=== PATIENT | male | born 1990 | race Caucasian/White ===

== ENCOUNTER 2020-12-29 07:44 | Outpatient (REF) | payer BC, SELFPAY ==
[2020-12-29 09:21] LABS: MANUAL DIFF FLAG NO
[2020-12-29 09:27] LABS: Basophils Absolute Auto 0.1 X10*3/uL (0.0-0.2); Basophils Percent Auto 0.9 % (0-2); Eosinophils Absolute Auto 0.5 X10*3/uL (0.0-0.4); Eosinophils Percent Auto 6.2 % (0-4); Hematocrit 43.7 % (42-52); Imm Gran Abs Auto 0.02 X10*3/uL (0.00-0.03); Imm Gran Pct Auto 0.3 % (0.0-0.4); Lymphocytes Absolute Auto 2.7 X10*3/uL (1.2-4.9); Lymphocytes Percent Auto 36.5 % (20-40); Mean Corpuscular HGB Conc 34.3 g/dl (31.0-36.0); Mean Corpuscular Hemoglobin 29.7 pg (27.0-33.0); Mean Corpuscular Volume 86.5 fL (80-98); Mean Platelet Volume 8.6 fL (9.4-12.4); Monocytes Absolute Auto 0.7 X10*3/uL (0.1-1.2); Monocytes Percent Auto 9.3 % (2-11); Neutrophils Absolute Auto 3.5 X10*3/uL (2.0-8.3); Neutrophils Percent Auto 46.8 % (45-73); Platelet Count 273 X10*3/uL (160-400); Red Blood Count 5.05 X10*6/uL (4.60-5.80); Red Cell Distribution Width 12.7 % (11.0-16.0); White Blood Count 7.5 X10*3/uL (4.8-10.8)
[2020-12-29 09:41] LABS: Estimated Average Glucose 94 mg/dL; Hemoglobin A1c % 4.9 %
[2020-12-29 09:57] LABS: Alanine Aminotransferase 40 U/L (0-40); Albumin Level 4.6 g/dL (3.5-5.0); Alkaline Phosphatase 94 U/L (39-117); Anion Gap 13 (12-20); Aspartate Amino Transferase 28 U/L (5-37); Bilirubin Total 0.4 mg/dL (0.0-1.0); Blood Urea Nitrogen 15 mg/dL (9-16); Carbon Dioxide 26 mmol/L (22-29); Chloride 104 mmol/L (96-108); Cholesterol 211 mg/dL; Estimated Glomerular Filt Rate > 60; Glucose Fasting 101 mg/dL (60-99); HDL Cholesterol 39 mg/dL; HIV AB/AG Nonreactive (Nonreactive); HIV Num 1 0.05 S/CO (0.00-0.99); LDL Cholesterol Calculated 123 mg/dl; Potassium 3.9 mmol/L (3.3-5.1); Sodium 139 mmol/L (135-145); Total Protein 7.1 g/dL (6.5-8.0); Triglycerides 245 mg/dL
[2020-12-29 10:02] LABS: TSH reflex Free T4 1.08 uIU/mL (0.32-4.0); Vitamin D 25-OH Total 22.6 ng/mL (>30)
== END 2020-12-29 07:45 | disposition home or self-care (01) ==
LOC: HO.LAB 07:44
PROVIDERS: PCP Physician Assistant; Visit Provider Physician Assistant
DX: Z00.00 Encounter for general adult medical examination without abnormal findings (principal); Z13.29 Encounter for screening for other suspected endocrine disorder; Z11.4 Encounter for screening for human immunodeficiency virus [HIV]; Z13.220 Encounter for screening for lipoid disorders; L65.9 Nonscarring hair loss, unspecified; E66.09 Other obesity due to excess calories; Z68.33 Body mass index [BMI] 33.0-33.9, adult
CPT/HCPCS: 36415; 80053; 80061; 82306; 83036; 84443; 85025; 87389

== ENCOUNTER 2021-10-06 11:52 | Outpatient (REF) | payer BC, SELFPAY ==
--- NOTE | ~2021-10-06 | XR_ITS ---
EXAMINATION: XR CHEST CLINICAL INFORMATION: Chronic cough. COMPARISON: None TECHNIQUE: 2 views of the chest were obtained. FINDINGS: No significant abnormality is noted involving the heart, lungs, mediastinum, bony thorax or soft tissues. XR/XR chest 2V IMPRESSION: Unremarkable chest examination.
== END 2021-10-06 11:53 | disposition home or self-care (01) ==
LOC: HO.XRAY 11:52
PROVIDERS: PCP Physician Assistant; Visit Provider Nurse Practitioner Family
DX: R05.3 Chronic cough (principal)
CPT/HCPCS: 71046

== ENCOUNTER 2023-09-03 11:34 | Emergency (ER) | payer BC, SELFPAY ==
--- NOTE | ~2023-09-03 | CT_ITS ---
EXAMINATION: CT HEAD WITHOUT CONTRAST CT CERVICAL SPINE WITHOUT CONTRAST CLINICAL INFORMATION: Fall. Syncope. COMPARISON: No relevant prior imaging. TECHNIQUE: Adult Secondary Education Instructor images were obtained. CT imaging of the head and cervical spine was performed without contrast. Data was reformatted into multiplanar images at the acquisition workstation. This CT examination was performed using dose optimization techniques as appropriate, including one or more of the following: Automated exposure control, iterative reconstruction, and adjustment of technique factors (mA and/or kVp) according to patient size (this includes techniques or standardized protocols for targeted exams where dose is matched to indication/reason for exam). Fleischner Society criteria for the followup of incidental pulmonary nodules was implemented if appropriate. DLP: 1128 mGy-cm. FINDINGS: Head: There is no acute intracranial hemorrhage or abnormal extra-axial collection. No intracranial mass effect or midline shift. Lateral and third ventricles are normal. No hydrocephalus. Craig-white matter differentiation is preserved and there is no evidence of acute territorial infarct. The calvarium and skull base are intact. The mastoid air cells and middle ear cavities are well aerated. There is moderate mucosal thickening within the alveolar recesses of the maxillary sinuses. Globes and orbits are grossly symmetric. Cervical spine: Spinal alignment is normal in the sagittal dimension. Vertebral heights are preserved. No acute cervical spinal fracture. No abnormal prevertebral soft tissue swelling. Visualized soft tissues of the neck are unremarkable. Lung apices are clear. CT/CT cervical spine wo IV con IMPRESSION: Head: No acute intracranial hemorrhage. Cervical Spine: No acute fracture and no posttraumatic spinal subluxation.
--- NOTE | ~2023-09-03 | CT_ITS ---
EXAMINATION: CT HEAD WITHOUT CONTRAST CT CERVICAL SPINE WITHOUT CONTRAST CLINICAL INFORMATION: Fall. Syncope. COMPARISON: No relevant prior imaging. TECHNIQUE: Bus Boy images were obtained. CT imaging of the head and cervical spine was performed without contrast. Data was reformatted into multiplanar images at the acquisition workstation. This CT examination was performed using dose optimization techniques as appropriate, including one or more of the following: Automated exposure control, iterative reconstruction, and adjustment of technique factors (mA and/or kVp) according to patient size (this includes techniques or standardized protocols for targeted exams where dose is matched to indication/reason for exam). Fleischner Society criteria for the followup of incidental pulmonary nodules was implemented if appropriate. DLP: 1128 mGy-cm. FINDINGS: Head: There is no acute intracranial hemorrhage or abnormal extra-axial collection. No intracranial mass effect or midline shift. Lateral and third ventricles are normal. No hydrocephalus. Craig-white matter differentiation is preserved and there is no evidence of acute territorial infarct. The calvarium and skull base are intact. The mastoid air cells and middle ear cavities are well aerated. There is moderate mucosal thickening within the alveolar recesses of the maxillary sinuses. Globes and orbits are grossly symmetric. Cervical spine: Spinal alignment is normal in the sagittal dimension. Vertebral heights are preserved. No acute cervical spinal fracture. No abnormal prevertebral soft tissue swelling. Visualized soft tissues of the neck are unremarkable. Lung apices are clear. CT/CT head/brain wo IV con IMPRESSION: Head: No acute intracranial hemorrhage. Cervical Spine: No acute fracture and no posttraumatic spinal subluxation.
--- NOTE | ~2023-09-03 | XR_ITS ---
EXAMINATION: XR CHEST CLINICAL INFORMATION: Chest pain. COMPARISON: 10/06/2021. TECHNIQUE: Frontal view of the chest was obtained. FINDINGS: Lung volumes are low. There is no gross pneumothorax. Heart size within normal limits. No gross pleural effusion or focal consolidation to suggest pneumonia. XR/XR chest 1V IMPRESSION: Low lung volumes. No gross consolidation to suggest pneumonia.
[2023-09-03 11:55] VITALS: BP 147/103; PULSE 80; RESP 19; TEMP 36.6; O2SAT 98; BMI 32.9
--- NOTE | 2023-09-03 11:59 | ECG_ITS ---
Test Reason : syncope Blood Pressure : / mmHG Vent. Rate : 083 BPM Atrial Rate : 083 BPM P-R Int : 164 ms QRS Dur : 124 ms QT Int : 372 ms P-R-T Axes : 066 078 038 degrees QTc Int : 437 ms Normal sinus rhythm Non-specific intra-ventricular conduction delay Borderline ECG When compared with ECG of 23-AUG-2014 10:43, No significant change was found Referred By: Alex Lombardi Electronically Signed By:JOSE BECKFORD MD
--- NOTE | 2023-09-03 12:01 | ED_ITS ---
HPI - General Adult General Chief complaint: General Medical Stated complaint: Blacked Out Am Sent By Time Seen by Provider: 09/03/23 17:58 Source: patient Mode of arrival: ambulatory Limitations: no limitations History of Present Illness HPI narrative: Patient comes to the emergency room complaining of a near syncopal episode. Patient states that today he was trying to inside of his car, patient [place] alarm button, the car beeped, which constipation to nearly pass out. Patient states that he did not pass out or fall, states that he did not feel right for a 2nd, no chest pain or shortness of breath. Patient states that he was freaked out enough to come to the emergency room to get checked out. Patient states he has history of anxiety and depression and migraines. At this time, patient denies headache. Related Data Home Medications Medication Instructions Recorded Confirmed albuterol sulfate 90 mcg/actuation 2 puff inhalation Q6H PRN 05/17/20 11/09/21 aerosol inhaler (ProAir HFA) trazodone 50 mg tablet mg PO BEDTIME PRN 05/17/20 11/09/21 bupropion HCl 150 mg 24 hr tablet, 150 mg PO QAM 12/28/20 11/09/21 extended release clonazepam 1 mg tablet 1 mg PO DAILY PRN 12/28/20 11/09/21 lisdexamfetamine 20 mg capsule 20 mg PO QAM 10/06/21 11/09/21 (Vyvanse) Previous Rx's Medication Instructions Recorded cholecalciferol (vitamin D3) 50 50 mcg PO DAILY 90 days #90 caps 06/26/21 mcg (2,000 unit) capsule cetirizine 10 mg tablet 10 mg PO DAILY #30 tabs 10/30/21 fluticasone propionate 110 1 puff inhalation BID 30 days #12 11/09/21 mcg/actuation HFA aerosol inhaler grams (Flovent HFA) baclofen 10 mg tablet 10 mg PO BID PRN pain (scale score 10/27/22 7-10) 15 days #30 tabs Allergies Allergy/AdvReac Type Severity Reaction Status Date / Time hazelnut Allergy Unknown throat Verified 09/03/23 11:55 itchy Review of Systems 2 Review of Systems: Constitutional : No Weight loss, No Fever, No Chills, No Night Sweats, No Fatigue, No Malaise ENT/Mouth : No Hearing loss, No Ear Pain, No Nasal Congestion, No Sinus Pain, No Hoarseness, No sore throat, No Rhinorrhea, No Swallowing Difficulty Eyes: No Eye Pain, No Swelling, No Redness, No Foreign Body, No Discharge, No Vision Changes Cardiovascular : No Chest Pain, No SOB, No Dyspnea on Exertion, No Orthopnea, No Edema, No Palpitations Respiratory : No Cough, No Sputum, No Wheezing, No Smoke Exposure, No Dyspnea Gastrointestinal : No Nausea, No Vomiting, No Diarrhea, No Constipation, No abdominal Pain, No Hematochezia, No Melena Genitourinary : no irregular bleeding, No Dysuria, No Urinary Frequency, No Hematuria, No Urinary Incontinence, No Urgency, No Flank Pain, No Urinary Flow Changes, No Hesitancy Musculoskeletal : No joint pain, No Myalgias, No Joint Swelling Skin : No Skin Lesions, No rash Neuro : No Weakness, No Numbness, No Paresthesias, No Loss of Consciousness, No Dizziness, No Headache near syncope for 2nd Psych : Anxiety No Depression, No SI/HI/AH/VH, No Social Issues, Heme/Lymph: No Bruising, No Bleeding,No Lymphadenopathy Endocrine : No Polyuria, No Polydipsia, No Temperature Intolerance [facility] Past Medical History Medical History Asthma MDD (major depressive disorder) JAN (generalized anxiety disorder) ADD (attention deficit disorder) Surgical History No pertinent past surgical history Family History Family History Father Medical history unknown Mother Depression with anxiety Chronic mental illness Mental health disorder Family/Other Diabetes Social History Social History (Updated 11/09/21 @ 15:11 by Rishi Galan PA-C) Housing: House Alcohol intake: current Alcohol intake frequency: 3 or more drinks per day Alcohol type: beer Patient Tobacco Use Status: Never used Tobacco Smoked in Last 30 Days: No e-Cigarette/Vaping Use: Never Used Second Hand Smoke Exposure: No Use of substances other than those prescribed or required for medical reasons: No Advance Directives: No service: No Current occupational status: employed Cognitive needs: No Hearing needs: No Vision needs: Yes (glasses) Physical Exam ED Vital Signs: Vital Signs - 24 hr 09/03/23 11:55 09/03/23 18:19 09/03/23 18:21 Temperature 98 F Pulse Rate 80 74 74 Respiratory Rate 19 16 Blood Pressure 147/103 H 120/81 120/81 Pulse Oximetry 98 97 Oxygen Delivery Method Room Air Room Air 09/03/23 18:21 09/03/23 18:23 Temperature Pulse Rate 80 79 Respiratory Rate Blood Pressure 131/101 H 147/93 H Pulse Oximetry Oxygen Delivery Method BMI result Body Mass Index 32.9 Course Course Course Narrative: RME: 31-year-old male presents to ED for syncopal episodes in his garage after hearing a loud noise. Patient states after having syncopal episode he is now having headache and chest pain. Patient denies any dizziness or chest pain before syncopal episode. Patient has history of anxiety. Patient states migraine in the past. EKG labs imaging ordered. Orthostatics ordered. Medical Decision Making Medical Decision Making [facility] Narrative: -patient's physical exam is normal. Orthostatic vitals negative -patient did not have a syncopal episode -Wells criteria score for pulmonary embolism is 0 -patient's hematology and chemistry fairly normal, troponin negative, BNP negative -my interpretation of EKG: Normal sinus rhythm, heart rate 83, no ST segment depression or elevation, no T-wave inversion, QTC 437 -my interpretation of head CT: No intracranial bleed -chest x-ray within normal limits Differential Diagnosis Differential Diagnoses: The differential diagnosis associated with the presentation includes (Syncope, near syncope, vasovagal near syncope, orthostatic hypotension, anxiety) Admission/Observation Consideration of admission/observation: Escalation of care including admission/observation considered (Given patient's presentation, admission was considered) Lab Data [facility] Lab Attestation statement: I reviewed the patient's lab results. 09/03/23 12:42 09/03/23 12:42 Labs: Lab Results 09/03/23 Range/Units 12:42 WBC 7.9 (4.8-10.8) X10*3/uL RBC 5.56 (4.60-5.80) X10*6/uL Hgb 16.5 (14.0-18.0) g/dl Hct 46.7 (42.0-52.0) % MCV 84.0 (80.0-98.0) fL MCH 29.7 (27.0-33.0) pg MCHC 35.3 (31.0-36.0) g/dl RDW 12.6 (11.0-16.0) % Plt Count 242 (160-400) X10*3/uL MPV 8.3 L (9.4-12.4) fL Immature Gran % (Auto) 0.5 H (0.0-0.4) % Neut % (Auto) 54.8 (45-73) % Lymph % (Auto) 35.7 (20-40) % Sherman % (Auto) 6.1 (2-11) % Eos % (Auto) 2.1 (0-4) % Baso % (Auto) 0.8 (0-2) % Lymph # (Auto) 2.8 (1.2-4.9) X10*3/uL Sherman # (Auto) 0.5 (0.1-1.2) X10*3/uL Eos # (Auto) 0.2 (0.0-0.4) X10*3/uL Baso # (Auto) 0.1 (0.0-0.2) X10*3/uL Abs Immat Gran (auto) 0.04 H (0.00-0.03) X10*3/uL Absolute Neuts (auto) 4.3 (2.0-8.3) x10*3/uL Absolute Nucleated RBC 0.000 (0.0-0.012) X10*3/uL Nucleated RBC % (auto) 0.0 (0.0-0.2) /100WBC PT 11.6 (11.1-13.3) SEC INR 1.0 (0.9-1.1) APTT 32.6 (26.0-36.8) SEC Sodium 142 (135-145) mmol/L Potassium 4.1 (3.3-5.1) mmol/L Chloride 105 (96-108) mmol/L Carbon Dioxide 28 (22-29) mmol/L Anion Gap 13 (12-20) BUN 13 (9-16) mg/dL Creatinine 1.02 (0.5-1.4) mg/dL Estim Creat Clear Calc 109.7 Estimated GFR > 60 Random Glucose 95 (60-115) mg/dL Calcium 9.7 D (8.4-10.2) mg/dL Total Bilirubin 0.6 (0.0-1.0) mg/dL AST 29 (5-37) U/L ALT 48 H (0-40) U/L Alkaline Phosphatase 81 (39-117) U/L Troponin I High Sens < 2.7 (<3.5-35.0) ng/L B-Natriuretic Peptide < 10 (<100) pg/mL Total Protein 7.7 (6.5-8.0) g/dL Albumin 4.8 (3.5-5.0) g/dL Critical Care Time Critical Care Time Critical Care Time: Yes Total Critical Care Time: 30 Attestation: I have personally provided critical care time. Time includes review of lab data, radiology results, discussion with consultants, and monitoring for potential decompensation. Intervention performed as documented. Discharge Plan Discharge Clinical Impression: Vasovagal episode Patient Disposition: Home, Self-Care Instructions: Near Syncope (ED) Additional Instructions: Please follow-up with your primary care physician tomorrow. If you have any worsening or new symptoms, please return to the emergency room or call 911 Prescriptions: No Action cholecalciferol (vitamin D3) 50 mcg (2,000 unit) capsule 50 mcg PO DAILY 90 Days Qty: 90 2RF cetirizine 10 mg tablet 10 mg PO DAILY Qty: 30 4RF baclofen 10 mg tablet 10 mg PO BID PRN (Reason: pain (scale score 7-10)) 15 Days Qty: 30 6RF trazodone 50 mg tablet PO BEDTIME PRN albuterol sulfate [ProAir HFA] 90 mcg/actuation HFA aerosol inhaler 2 puff inhalation Q6H PRN clonazepam 1 mg tablet 1 mg PO DAILY PRN bupropion HCl 150 mg tablet extended release 24 hr 150 mg PO QAM Vyvanse 20 mg capsule 20 mg PO QAM Flovent HFA 110 mcg/actuation HFA aerosol inhaler 1 puff inhalation BID 30 Days Qty: 12 1RF
[2023-09-03 12:48] LABS: MANUAL DIFF FLAG NO
[2023-09-03 12:53] LABS: Basophils Absolute Auto 0.1 X10*3/uL (0.0-0.2); Basophils Percent Auto 0.8 % (0-2); Eosinophils Absolute Auto 0.2 X10*3/uL (0.0-0.4); Eosinophils Percent Auto 2.1 % (0-4); Hematocrit 46.7 % (42.0-52.0); Hemoglobin 16.5 g/dl (14.0-18.0); Imm Gran Abs Auto 0.04 X10*3/uL (0.00-0.03); Imm Gran Pct Auto 0.5 % (0.0-0.4); Lymphocytes Absolute Auto 2.8 X10*3/uL (1.2-4.9); Lymphocytes Percent Auto 35.7 % (20-40); Mean Corpuscular HGB Conc 35.3 g/dl (31.0-36.0); Mean Corpuscular Hemoglobin 29.7 pg (27.0-33.0); Mean Platelet Volume 8.3 fL (9.4-12.4); Monocytes Absolute Auto 0.5 X10*3/uL (0.1-1.2); Monocytes Percent Auto 6.1 % (2-11); Neutrophils Absolute Auto 4.3 x10*3/uL (2.0-8.3); Neutrophils Percent Auto 54.8 % (45-73); Platelet Count 242 X10*3/uL (160-400); Red Blood Count 5.56 X10*6/uL (4.60-5.80); Red Cell Distribution Width 12.6 % (11.0-16.0); White Blood Count 7.9 X10*3/uL (4.8-10.8)
[2023-09-03 12:56] LABS: Prothrombin Time 11.6 SEC (11.1-13.3)
[2023-09-03 12:59] LABS: Partial Thromboplastin Time 32.6 SEC (26.0-36.8)
[2023-09-03 13:04] LABS: Alanine Aminotransferase 48 U/L (0-40); Albumin Level 4.8 g/dL (3.5-5.0); Alkaline Phosphatase 81 U/L (39-117); Anion Gap 13 (12-20); Aspartate Amino Transferase 29 U/L (5-37); Bilirubin Total 0.6 mg/dL (0.0-1.0); Blood Urea Nitrogen 13 mg/dL (9-16); Calcium 9.7 mg/dL (8.4-10.2); Carbon Dioxide 28 mmol/L (22-29); Chloride 105 mmol/L (96-108); Creatinine Clr Calc Pharmacy 109.7; Estimated Glomerular Filt Rate > 60; Glucose Random 95 mg/dL (60-115); Potassium 4.1 mmol/L (3.3-5.1); Sodium 142 mmol/L (135-145); Total Protein 7.7 g/dL (6.5-8.0)
[2023-09-03 13:09] LABS: B Type Natriuretic Peptide < 10 pg/mL (<100)
[2023-09-03 13:11] LABS: Troponin-I High Sensitivity < 2.7 ng/L (<3.5-35.0)
[2023-09-03 18:19] VITALS: BP 120/81; PULSE 74
[2023-09-03 18:21] VITALS: BP 120/81; BP 131/101; PULSE 74; PULSE 80; RESP 16; O2SAT 97
[2023-09-03 18:23] VITALS: BP 147/93; PULSE 79
[2023-09-03 19:05] VITALS: BP 135/89; PULSE 78; RESP 18; O2SAT 95
[2023-09-03 19:06] VITALS: TEMP 36.6
== END 2023-09-03 19:11 | disposition home or self-care (01) ==
PROVIDERS: Physician Assistant; Emergency Provider Emergency Medicine; PCP Physician Assistant
DX: R55 Syncope and collapse (principal); R51.9 Headache, unspecified; M54.2 Cervicalgia; R94.31 Abnormal electrocardiogram [ECG] [EKG]; R06.02 Shortness of breath; Z79.899 Other long term (current) drug therapy
CPT/HCPCS: 36415; 70450; 71045; 72125; 80053; 83880; 84484; 85025; 85610; 85730; 93005; 99284

== ENCOUNTER → 2023-09-03 11:59 | Outpatient (BNV) | payer BC, SELFPAY | PROVIDERS: Emergency Provider Emergency Medicine; PCP Physician Assistant; Visit Provider Internal Medicine Cardiovascular Disease | DX: R55 Syncope and collapse (principal) | CPT/HCPCS: 93010 ==

== ENCOUNTER 2023-09-10 08:43 | Outpatient (AMB) | payer BC, SELFPAY ==
[2023-09-10 09:07] VITALS: BP 126/88; PULSE 80; O2SAT 97; BMI 33.6
--- NOTE | 2023-09-10 09:07 | A.OFFPC_ITS ---
Vital Signs 09/10/23 09:07 Height 5 ft 6 in Weight 208 lb BMI 33.6 BP 126/88 Blood Pressure Location Lt brachial Position Sitting Pulse 80 Pulse Source Pulse Oximeter Pulse Oximetry (%) 97 Oxygen Delivery Method Room Air Intake Visit Reasons: [facility] On 09/03/23 due to Passing Out Cattle Feeder Required: No Rolls Baker: Not Required per policy Accompanied by: Self / Same As Patient Allergies hazelnut Allergy (Unknown, Verified 09/10/23 09:26) throat itchy Medication List - Last Reconciled 09/10/23 by Rishi Galan PA-C albuterol sulfate 90 mcg/actuation (ProAir HFA) 2 puffs inhalation Q6H PRN aripiprazole 2 mg PO DAILY bupropion HCl 150 mg PO QAM cholecalciferol (vitamin D3) 50 mcg PO DAILY 90 days clonazepam 1 mg PO DAILY PRN fluticasone propionate 110 mcg/actuation 1 puff inhalation BID 30 days trazodone mg PO BEDTIME PRN Tobacco use date assessed: 09/10/23 Dental Screening Dental Screen Date: 09/10/23 Did you have a dental visit in the last 12 months?: Yes Did you have a dental problem in the last 6 months where you did not have access to dental care?: No Was dental information given to patient?: Patient has dentist HPI [facility] On 09/03/23 due to Passing Out HPI Details Patient is a 32-year-old male here today for an ER follow-up visit. He reports he was seen at the [place] ER for acute episode syncope with loss of consciousness. He reports he was in his garage and turned on the alarm for his car and when the alarm went off he reports he blanked out . In the ER he underwent extensive testing including labs, CT of head and neck, troponins, chest x-ray and EKG. His EKG did show a intraventricular conduction delay otherwise all labs and imaging were negative. He denies any recreational drug use. He does report cut down his alcohol intake. He otherwise feels fine at this moment and has no further episodes of syncope [facility] Medical History Asthma MDD (major depressive disorder) JAN (generalized anxiety disorder) ADD (attention deficit disorder) Surgical History No pertinent past surgical history Family History Father Medical history unknown Mother Depression with anxiety Chronic mental illness Mental health disorder Family/Other Diabetes Social History Housing: House Alcohol intake: current Alcohol intake frequency: 3 or more drinks per day Alcohol type: beer Patient Tobacco Use Status: Never used Tobacco e-Cigarette/Vaping Use: Never Used Second Hand Smoke Exposure: No service: No Current occupational status: employed Cognitive needs: No Hearing needs: No Vision needs: Yes (glasses) Questionnaire PHQ-9 Over the last 2 weeks, how often have you been bothered by any of the following problems? 1. Little interest or pleasure in doing things: not at all 2. Feeling down, depressed, or hopeless: not at all 3. Trouble falling or staying asleep, or sleeping too much: not at all 4. Feeling tired or having little energy: not at all 5. Poor appetite or overeating: not at all 6. Feeling bad about yourself - or that you are a failure or have let yourself or your family down: not at all 7. Trouble concentrating on things, such as reading the newspaper or watching television: not at all 8. Moving or speaking so slowly that other people could have noticed. Or the opposite - being so fidgety or restless that you have been moving around a lot more than usual: not at all 9. Thoughts that you would be better off or of hurting yourself in some way: not at all Total score: 0 95059 - PHQ-9 Billing: Yes Source: Developed by Drs. Nick Ramirez, Ema Still, Justice Vidal and colleagues, with an educational aubrey from [employer]. Thrive Questionnaire Date Thrive assessed: 09/10/23 I am a: Patient What is your living situation today?: I have a steady place to live Within the past 12 months, did the food you bought not last and you didn't have the money to get more?: Never true Within the past 12 months, did you worry whether your food would run out before you got money to buy more?: Never true Do you have trouble paying for medicines?: No Do you have trouble getting transportation to medical appointments?: No Do you have trouble paying your heating and electricity bill?: No Do you have trouble taking care of your child, family member or friend?: No Do you have trouble with day-to-day activities such as bathing, preparing meals, shopping, managing finances, etc.?: No Are you currently unemployed and looking for a job?: No Are you interested in more education?: No Please select the resources that you would like help with: None THRIVE Score: 0 AUDIT C Alcohol Use Questionnaire (AUDIT-C) 1. How often do you have a drink containing alcohol?: Monthly or less 2. How many drinks containing alcohol do you have on a typical day when you are drinking?: 1 or 2 3. How often do you have six or more drinks on one occasion?: Never Total Score: 1 JAN-7 AMB Questionnaire JAN-7 Date JAN - 7 assessed: 09/10/23 Feeling nervous, anxious, or on edge: 0 = Not at all Not being able to stop or control worryin = Not at all Worrying too much about different things: 0 = Not at all Trouble relaxin = Not at all Being so restless that it is hard to sit still: 0 = Not at all Becoming easily annoyed or irritable: 0 = Not at all Feeling afraid as if something awful might happen: 0 = Not at all Total JAN-7 score (0-4 normal; 5-9 mild; 10-14 moderate; 15-21 severe): 0 Source: Developed by Drs. Nick Ramirez, Ema Still, Justice Vidal and colleagues, with an educational aubrey from [employer]. JAN-7 Assessment Billing JAN-7 Assessment Tool: JAN-7 Assessment 16260 Review of Systems Const Denies headache(s) Eyes Denies loss of vision ENT Denies vertigo, Denies dizziness, Denies headache(s) and Denies sore throat Card Denies chest pain, Denies leg edema and Denies lightheadedness Resp Denies cough, Denies hemoptysis and Denies wheezing GI Denies abdominal pain, Denies melena, Denies constipation, Denies diarrhea and Denies vomiting Denies dysuria, Denies urinary frequency and Denies urinary urgency Musc Denies arthralgias, Denies joint swelling, Denies numbness and Denies tingling Neuro Denies Abnormal speech present, Denies behavioral changes, Denies vertigo, Denies dizziness, Denies headache(s), Denies loss of vision, Denies memory loss, Denies numbness and Denies tingling Psych Denies anxiety, Denies behavioral changes, Denies depression, Denies memory loss and Denies panic attacks Manjit/Lymph Denies easy bleeding and Denies easy bruising Aller/Immun Denies wheezing Physical exam (Primary Care) Vital Signs: Last Vital Signs Pulse 80 09/10/23 09:07 BP 126/88 09/10/23 09:07 Pulse Ox 97 09/10/23 09:07 Oxygen Delivery Method Room Air 09/10/23 09:07 BMI result Body Mass Index 33.6 Tobacco/Smoking Status: Tobacco use Status Tobacco use date assessed 09/10/23 09/10/23 09:08 Patient Tobacco Use Status Never used Tobacco 09/10/23 09:08 e-Cigarette/Vaping Use Never Used 09/10/23 09:08 PHQ-9: PHQ-9 Score PHQ-9: Total score 0 09/10/23 09:29 Thrive Assessment: Date of Thrive Assessment Date Thrive assessed 09/10/23 09/10/23 09:08 Const General: healthy appearing, no acute distress, alert and awake Nutritional Appearance: well nourished Orientation/consciousness: oriented to person, oriented to place and oriented to time HENMT Ears: TM's normal bilaterally General nose exam: Normal nasal mucous membranes and turbinates present Eyes Conjunctivae: conjunctivae normal Sclerae: sclerae normal Pupils: Equal, round and reactive pupils present Neck Neck: Yes no lymphadenopathy and Yes no JVD Thyroid: Thyroid normal Carotids: no bruits Resp Effort & Inspection: normal respiratory effort and not tachypneic Auscultation: no crackles, no rales, no rhonchi and no wheezes Cardio Rate: regular rate Rhythm: regular rhythm Heart sounds: no murmurs and normal S1 and S2 GI Palpation (GI): Soft to palpation, nontender, no hepatomegaly and no splenomegaly Auscultation: normal bowel sounds Skin General skin exam: no rashes or lesions noted and dry skin Neuro General: oriented to person, oriented to place and oriented to time Cranial nerves: Yes Equal, round and reactive pupils present Speech: No Abnormal speech present Gait exam (Neuro): Normal gait present Motor exam (neuro): no tremor noted Extrem Right upper extremity: full ROM Left upper extremity: full ROM Right lower extremity: full ROM; no edema Left lower extremity: full ROM; no edema Psych Mental Status: mental status grossly normal Speech and movement: Normal speech and movement present Affect: normal affect Attitude: cooperative Thought process: Normal thought process present Assessment and Plan Assessment & Plan (1) Syncopal episodes: Code(s): R55 - Syncope and collapse Qualifiers: Syncope type: psychogenic syncope Qualified Code(s): F48.8 - Other specified nonpsychotic mental disorders Plan: Unclear recent for patient's syncopal episode. Workup has been fairly benign thus far. Will send for echocardiogram to evaluate for structural heart disease. Does have EKG evidence of intraventricular conduction delay. Will consider Cardiology evaluation (2) Intraventricular conduction delay: Code(s): I45.9 - Conduction disorder, unspecified Orders: Orders Comprehensive Kill Buck. 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
== END 2023-09-10 09:42 | disposition home or self-care (01) ==
PROVIDERS: PCP Physician Assistant; Visit Provider Physician Assistant
DX: I45.9 Conduction disorder, unspecified (principal); F48.8 Other specified nonpsychotic mental disorders
CPT/HCPCS: 99214

== ENCOUNTER → 2023-09-30 14:40 | Outpatient (REF) | payer BC, SELFPAY ==
--- NOTE | 2023-09-30 14:44 | CA_ITS ---
Transthoracic Echocardiogram Patient (Last, First, Middle): Mesfin Brown M Gender: Male Date of : 1990 Age: 32 Procedure Date: 09/30/2023 Procedure Type: Transthoracic Echocardiogram Location: OP Height: 167.64 cm Weight: 92.53 kg BSA: 2.02 m2 Heart Rate: bpm BP: 122 / 60 mmHg Manager Deli: Referring MD: Rishi Galan PA-C Symptoms: SYNCOPE, ABNORMAL EKG , IVCD Study Quality: Adequate ECG Rhythm: Sinus Conclusions: - The left ventricular systolic function is normal. The calculated ejection fraction is 55% by biplane method. - No obvious valvular pathology seen on this study. Findings Left Ventricle Normal left ventricular cavity size. There is normal left ventricular wall thickness. The left ventricular systolic function is normal. The calculated ejection fraction is 55% by biplane method. There is no evidence of regional wall motion abnormalities. Diastolic function is normal for age. Right Ventricle Normal right ventricular cavity size and systolic function. Atria Both atria are normal in size. Aortic Valve The aortic valve was not well visualized. There is no aortic valve stenosis. There is no aortic valve regurgitation. Mitral Valve The mitral valve appears normal. There is no mitral valve regurgitation. There is no mitral valve stenosis. Pulmonic Valve The pulmonic valve is likely normal. Tricuspid Valve There is trace tricuspid valve regurgitation. There is no evidence of pulmonary hypertension. Great Vessels The asc aorta is normal in size. Venous The inferior vena cava is normal in size and collapses greater than 50% with inspiration. Pericardium/Pleural There is no evidence of pericardial effusion. Prior Study Comparison No prior study available for comparison. Recommendations, Care & Conclusions No obvious valvular pathology seen on this study. Measurements 2D Linear Measurements IVSd: 1.03 0.6-0.9/0.6-1.0 cm LVIDd: 4.25 3.9-5.3/4.2-5.9 cm LVIDd Index: 2.10 2.4-3.2/2.2-3.1 cm/m2 LVIDs: 2.40 2.0-3.6 cm LVPWd: 1.00 0.7-1.1 cm Ao Root: 3.30 2.1-3.5 cm LA Diam: 3.70 2.7-3.8/3.0-4.0 cm LAIDs Index: 1.83 1.5-2.3 cm/m2 LV Mass: 177.74 67-162/88-224 g LV Mass Index: 87.99 43-95/49-115 g/m2 LVOT Diam: 2.40 3.0+(-)1.3 cm 2D Systolic Function EF 4C: 54.90 >55% EF 2C: 54.20 >55% EF BiP: 54.80 >55% Mitral Valve MV Pk E: 0.65 MV PK A: 0.56 MV Decel Time: 136.00 E/A: 1.20 E'Lateral: 9.25 E'Medial: 6.74 E/E' Med: 9.60 E/E' Lat: 7.00 PHT: 40.00 MVA PHT: 5.50 Decel Harrison: 4.74 Aortic Valve AoV Pk Hans: 1.12 AoV Mn Hans: 0.80 AoV VTI: 0.23 AoV Pk Grad: 5.00 Aov Mn Grad: 3.00 HILARY Cont.VTI: 3.06 LVOT LVOT Pk Hans: 0.74 LVOT Mn Hans: 0.54 LVOT VTI: 0.16 LVOT Pk Grad: 2.00 LVOT Mn Grad: 1.00 LVOT Diam: 2.40 LVOT Area: 4.52 Diastolic Function MV Pk E: 0.65 MV Pk A: 0.56 E/A: 1.20 E'Medial: 6.74 E/E' Med: 9.60 E' Laterial: 9.25 E/E' Lat: 7.00 Right Ventricle TAPSE (mm): 23.00 TVS' Hans: 12.40 Tricuspid Valve TR Pk Hans: 1.65 TR Pk Grad: 11.00 Great Vessels Aorta Ao Root-2D: 3.30 2.0-3.7 cm Ao Asc: 3.00 2.1-3.4 cm Pulmonary Valve PV Pk Hans: 0.88 Peak PV Grad: 3.00 Updated in Other Vendor System with Status of Final Faisal Scott MD electronically signed on 10/01/2023 12:30:51 PM with status of Final
== END ==
LOC: HO.CARD 14:40
PROVIDERS: Visit Provider Physician Assistant
DX: F48.8 Other specified nonpsychotic mental disorders (principal)
CPT/HCPCS: 93306

== ENCOUNTER → 2023-09-30 14:44 | Outpatient (BNV) | payer BC, SELFPAY | PROVIDERS: Visit Provider Internal Medicine | DX: R55 Syncope and collapse (principal); R94.31 Abnormal electrocardiogram [ECG] [EKG] | CPT/HCPCS: 93306 ==

== ENCOUNTER 2024-01-09 10:05 | Outpatient (AMB) | payer BC, SELFPAY ==
--- NOTE | 2024-01-09 10:12 | MHC.PC.OV ---
Vital Signs 01/09/24 10:13 Height 5 ft 6 in Weight 211 lb BMI 34.1 BP 132/100 H Blood Pressure Location Lt brachial Position Sitting Pulse 78 Pulse Source Pulse Oximeter Pulse Oximetry (%) 96 Oxygen Delivery Method Room Air Intake Visit Reasons: Physical+checkup Intake Note: Patient here for a physical exam Alarm Operator Required: No Accompanied by: Self / Same As Patient Allergies hazelnut Allergy (Unknown, Verified 01/09/24 10:19) throat itchy Medication List - Last Reconciled 01/09/24 by Rishi Galan PA-C albuterol sulfate 90 mcg/actuation 1 inh inhalation QID PRN 30 days aripiprazole 2 mg PO DAILY bupropion HCl XL 150 mg PO QAM cholecalciferol (vitamin D3) 50 mcg PO DAILY 90 days clonazepam 1 mg PO DAILY PRN fluticasone propionate 110 mcg/actuation inhalation prazosin 2 mg PO BID trazodone mg PO BEDTIME PRN Tobacco use date assessed: 09/10/23 Dental Screening Dental Screen Date: 01/09/24 Did you have a dental visit in the last 12 months?: Yes Did you have a dental problem in the last 6 months where you did not have access to dental care?: No Was dental information given to patient?: Patient has dentist HPI Physical+checkup HPI Details Patient is a 33 -year-old male here today for routine annual physical. Patient has a past medical history significant for major depressive disorder, anxiety, ADD, obesity, Chronic lumbar spine pain. Concern--> reports bilateral hand and forearm pain and hand numbness at times. 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 Asthma: REport his asthma has been stable. Has rarely had to use his albuterol inhaler. . MDD: feels pretty stable on currently meds. Does admit to times more depression and some isolation. He does report reducing some of his alcohol intake lately. Continues to follow a therapist and a psychiatrist. .. Lower back pain - report having more back pain has been worsening, report falling down some stairs in the fall 2020 which exacerbated his lower back pain. Has gotten x-ray of his lower back in 2019 which was fairly unremarkable. He is willing to repeat x-ray and do physical therapy for his lower back pain condition. We will consider MRI imaging to rule out a disc issue if he does not aggressive physical therapy. Vaccine: UTD with Tdap, up-to-date with COVID vaccine [facility] Medical History Asthma MDD (major depressive disorder) JAN (generalized anxiety disorder) ADD (attention deficit disorder) Surgical History No pertinent past surgical history Family History Father Medical history unknown Mother Depression with anxiety Chronic mental illness Mental health disorder Family/Other Diabetes Social History (Updated 01/09/24 @ 10:22 by Rishi Galan PA-C) Housing: House Alcohol intake: current Alcohol intake frequency: 0-2 drinks per day Alcohol type: beer Patient Tobacco Use Status: Never used Tobacco e-Cigarette/Vaping Use: Never Used Second Hand Smoke Exposure: No service: No Current occupational status: employed 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 Nick Ramirez, Ema Still, Justice Vidal and colleagues, with an educational aubrey from [employer]. Review of Systems Const Denies body aches, Denies chills, Denies excessive sweating, Denies fatigue, Denies fever(s) and Denies headache(s) Eyes Denies blurry vision ENT Denies dysphagia, Denies vertigo, Denies dizziness, Denies headache(s), Denies hearing loss and Denies tinnitus Card Denies chest pain, Denies chest pain with activity, Denies syncope, Denies irregular heart rhythm and Denies dyspnea Resp Denies chest congestion, Denies cough, Denies hemoptysis, Denies dyspnea and Denies wheezing GI Denies abdominal pain, Denies melena, Denies hematochezia, Denies coffee ground emesis, Denies dysphagia, Denies diarrhea, Denies nausea and Denies vomiting Denies difficulty urinating, Denies dysuria, Denies urinary frequency, Denies urinary hesitancy and Denies urinary urgency Musc Denies arthralgias, Denies limited range of motion, Denies muscle cramps and Denies muscle weakness Skin/Breast Denies rash and Denies skin ulcer Neuro Denies Abnormal speech present, Denies confusion, Denies vertigo, Denies dizziness, Denies syncope, Denies headache(s), Denies memory loss and Denies seizure-like activity Psych Denies anxiety, Denies confusion, Denies depression, Denies memory loss, Denies panic attacks and Denies paranoia Endo Denies excessive sweating, Denies fatigue, Denies flushing, Denies polydipsia and Denies polyuria Aller/Immun Denies wheezing Physical exam (Primary Care) Vital Signs: Last Vital Signs Pulse 78 01/09/24 10:13 BP 132/100 H 01/09/24 10:13 Pulse Ox 96 01/09/24 10:13 Oxygen Delivery Method Room Air 01/09/24 10:13 BMI result Body Mass Index 34.1 Tobacco/Smoking Status: Tobacco use Status Tobacco use date assessed 09/10/23 01/09/24 10:17 Patient Tobacco Use Status Never used Tobacco 01/09/24 10:22 e-Cigarette/Vaping Use Never Used 01/09/24 10:22 Thrive Assessment: Date of Thrive Assessment Date Thrive assessed 09/10/23 01/09/24 10:17 Const General: cooperative, comfortable, no acute distress, alert and awake; No confusion Orientation/consciousness: oriented to person, oriented to place, patient oriented x3 and No confusion HENMT Head: Yes normocephalic Ears: external ears normal and TM's normal bilaterally Face and sinus: No sinus tenderness Mouth: Normal oral and palatal mucosa present and tongue normal Teeth and gingiva: dentition normal and gingiva normal Throat: Yes posterior oropharynx normal, Yes tonsils normal and Yes uvula midline Eyes Conjunctivae: conjunctivae normal Sclerae: sclerae normal Pupils: Equal, round and reactive pupils present EOM: EOMs intact bilaterally Direct Ophthalmoscopy: No no photophobia Neck Neck: Yes no lymphadenopathy, No tender and Yes no JVD Thyroid: Thyroid normal Carotids: no bruits Chest Chest palpation & inspection: no tenderness Resp Effort & Inspection: normal respiratory effort, no audible wheezes, not labored and no stridor Auscultation: no crackles, no rales, no rhonchi and no wheezes Cardio Jugular venous distension: no JVD Rate: regular rate, not bradycardic and not tachycardic Rhythm: regular rhythm Bruits: no carotid bruits Peripheral pulses: Peripheral pulses 2+ throughout GI Inspection: Yes normal to inspection, No abdominal wall ecchymosis and No visible herniation Palpation (GI): Soft to palpation, nontender, no guarding, not rigid and No hepatosplenomegaly present Auscultation: normoactive bowel sounds General: Yes no CVA tenderness Back/Spine/Pelvis Back: no CVA tenderness and No back tenderness Cervical Spine: cervical ROM normal Thoracic/Lumbar Spine: thoracic and lumbar spine normal to inspection, straight leg raise negative bilaterally, No thoraco-lumbar ROM limited and No lumbar spinal tenderness Skin Lesions: no lesions Rashes: no rashes Wounds: no wounds Neuro General: oriented to person, oriented to place, patient oriented x3, CN's II-XI intact bilaterally and No confusion Cranial nerves: Yes Equal, round and reactive pupils present and Yes Normal accommodation reflex present Cognition (Neuro): normal cognition Speech: No Abnormal speech present Gait exam (Neuro): Normal gait present Motor exam (neuro): 5/5 motor strength present throughout Extrem Right upper extremity: full ROM; no cyanosis Left upper extremity: full ROM; no cyanosis Right lower extremity: no edema Left lower extremity: no edema Psych Appearance: grossly normal Mental Status: mental status grossly normal Affect: normal affect Attitude: cooperative Thought process: Normal thought process present Assessment and Plan Assessment & Plan (1) Annual physical exam: Code(s): Z00.00 - Encounter for general adult medical examination without abnormal findings (2) Asthma: Code(s): J45.909 - Unspecified asthma, uncomplicated Qualifiers: Asthma complication type: uncomplicated Asthma persistence: persistent Asthma severity: mild Qualified Code(s): J45.30 - Mild persistent asthma, uncomplicated Plan: He reports his asthma has been fairly well controlled, does use a maintenance inhaler twice a day and rarely has to use his albuterol inhaler. He denies any nighttime awakenings or recent asthma exacerbations. (3) MDD (major depressive disorder): Code(s): F32.9 - Major depressive disorder, single episode, unspecified Qualifiers: Active/Remission status: currently active Major depression episode severity: mild Major depression recurrence: recurrent Qualified Code(s): F33.0 - Major depressive disorder, recurrent, mild Plan: Continues to follow a psychiatrist who manages his mental medications. He feels his mental health is stable. (4) JAN (generalized anxiety disorder): Code(s): F41.1 - Generalized anxiety disorder Plan: Again patient followed a psychiatrist who manages his mental health medications. He does report having a bit more anxiety as of late and has been isolating a bit. (5) Borderline high cholesterol: Code(s): E78.9 - Disorder of lipoprotein metabolism, unspecified Plan: Patient's most recent fasting blood Jakub all borderline high. Patient will work on being more physically active and reducing his high cholesterol foods in his diet. (6) Screening for diabetes mellitus (DM): Code(s): Z13.1 - Encounter for screening for diabetes mellitus (7) Lumbar radiculopathy: Code(s): M54.16 - Radiculopathy, lumbar region Plan: As per HPI patient willing to do physical therapy again and get repeat x-rays of his lumbar spine. (8) Paresthesia of hand, bilateral: Code(s): R20.2 - Paresthesia of skin Plan: Does report having bilateral hand paresthesias. 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 Will send for EMG of bilateral upper extremities evaluate for acute portal versus median nerve neuropathy. Advised on conservative treatment of using wrist splint bilaterally at night Orders: Orders NE electromyogram (EMG) 01/09/24 R20.2 - Paresthesia of skin PT Evaluation and Treatment 01/09/24 M54.16 - Radiculopathy, lumbar region Lipid Panel Today E78.9 - Disorder of lipoprotein metabolism, unspecified XR lumbar spine 4V min 01/09/24 M54.16 - Radiculopathy, lumbar region Coding Level of Care Code Est Pt Prev Care [id number]) Diagnoses Annual physical exam Z00.00 Mild persistent asthma without complication J45.30 Asthma complication type: uncomplicated Asthma persistence: persistent Asthma severity: mild Mild episode of recurrent major depressive disorder F33.0 Active/Remission status: currently active Major depression episode severity: mild Major depression recurrence: recurrent JAN (generalized anxiety disorder) F41.1 Borderline high cholesterol E78.9 Screening for diabetes mellitus (DM) Z13.1 Lumbar radiculopathy M54.16 Paresthesia of hand, bilateral R20.2
[2024-01-09 10:13] VITALS: BP 132/100; PULSE 78; O2SAT 96; BMI 34.1
== END 2024-01-09 10:44 | disposition home or self-care (01) ==
PROVIDERS: PCP Physician Assistant; Visit Provider Physician Assistant
DX: Z00.00 Encounter for general adult medical examination without abnormal findings (principal); J45.30 Mild persistent asthma, uncomplicated; F33.0 Major depressive disorder, recurrent, mild; F41.1 Generalized anxiety disorder; E78.9 Disorder of lipoprotein metabolism, unspecified; Z13.1 Encounter for screening for diabetes mellitus; M54.16 Radiculopathy, lumbar region; R20.2 Paresthesia of skin
CPT/HCPCS: 99395

== ENCOUNTER 2024-04-01 08:50 | Outpatient (REF) | payer BC, SELFPAY ==
--- NOTE | ~2024-04-01 | XR_ITS ---
EXAMINATION: XR CHEST 2 VIEWS CLINICAL INFORMATION: Cough of 3 weeks' duration. COMPARISON: Prior chest radiographs, most recently 09/03/2023. TECHNIQUE: Frontal and lateral views of the chest were obtained. FINDINGS: The heart, great vessels, pulmonary vasculature and mediastinum are normal. The lungs show no focal infiltrate, effusion or pneumothorax. There is no acute osseous abnormality. XR/XR chest 2V IMPRESSION: No active cardiopulmonary disease. Electronically signed by: Gilberto Perez MD 04/03/2024 03:38 PM EDT RP
[2024-04-01 11:11] LABS: Hematocrit 44.7 % (42.0-52.0); Hemoglobin 15.7 g/dl (14.0-18.0); Mean Corpuscular HGB Conc 35.1 g/dl (31.0-36.0); Mean Corpuscular Hemoglobin 29.7 pg (27.0-33.0); Mean Corpuscular Volume 84.5 fL (80.0-98.0); Mean Platelet Volume 8.8 fL (9.4-12.4); Platelet Count 277 X10*3/uL (160-400); Red Blood Count 5.29 X10*6/uL (4.60-5.80); Red Cell Distribution Width 12.9 % (11.0-16.0); White Blood Count 8.7 X10*3/uL (4.8-10.8)
[2024-04-01 11:45] LABS: Erythrocyte Sedimentation Rate 2 MM/HR (0-15)
[2024-04-01 12:07] LABS: Appearance Urine Clear; Color Urine Yellow; Glucose Urine UA Negative (Negative); Leukocyte Esterase Urine Negative (Negative); Nitrite Urine Negative (Negative); PH 7.5 (5.0-9.0); Specific Gravity - Urine 1.015 (1.005-1.025); Urine Blood Negative (Negative); Urine Ketones Negative (Negative); Urine Protein Negative (Neg-Trace)
[2024-04-01 12:14] LABS: Anion Gap 10 (12-20)
[2024-04-01 12:19] LABS: Alanine Aminotransferase 59 U/L (0-40); Albumin Level 4.5 g/dL (3.5-5.0); Alkaline Phosphatase 103 U/L (39-117); Aspartate Amino Transferase 36 U/L (5-37); Bilirubin Direct 0.1 mg/dL (0.0-0.5); Bilirubin Total 0.5 mg/dL (0.0-1.0); Blood Urea Nitrogen 9 mg/dL (9-16); Calcium 9.4 mg/dL (8.4-10.2); Carbon Dioxide 28 mmol/L (22-29); Chloride 105 mmol/L (96-108); Cholesterol 207 mg/dL (<200); Estimated Glomerular Filt Rate > 60; Glucose Random 95 mg/dL (60-115); HDL Cholesterol 44 mg/dL (>40); LDL Cholesterol Calculated 91 mg/dL (<100); Potassium 3.9 mmol/L (3.3-5.1); Sodium 139 mmol/L (135-145); Total Protein 7.6 g/dL (6.5-8.0); Triglycerides 361 mg/dL (<150)
[2024-04-01 12:32] LABS: Thyroid Stimulating Hormone 0.52 uIU/mL (0.32-4.0)
== END 2024-04-01 08:51 | disposition home or self-care (01) ==
LOC: HO.LAB 08:50
PROVIDERS: PCP Physician Assistant; Visit Provider Internal Medicine
DX: J06.9 Acute upper respiratory infection, unspecified (principal)
CPT/HCPCS: 36415; 71046; 80048; 80061; 80076; 81003; 84443; 85027; 85652

== ENCOUNTER 2024-04-01 08:50 | Outpatient (AMB) | payer BC, SELFPAY ==
--- NOTE | 2024-04-01 09:04 | A.OFFPC_ITS ---
Vital Signs 04/01/24 09:05 Height 5 ft 6 in Weight 207 lb 8 oz BMI 33.5 BP 120/78 Blood Pressure Location Lt brachial Position Sitting Pulse 87 Pulse Source Pulse Oximeter Pulse Oximetry (%) 97 Oxygen Delivery Method Room Air Intake Visit Reasons: [id number] Intake Note: Patient is here to follow up on productive coughing, fever, nauseous, vomiting, chest and sinus congestion, some SOB on going for 3 weeks. Negative for home covid testing. OTC does not help. Coffee Supervisor Required: No Monorail Crane Operator: Not Required per policy Accompanied by: Self / Same As Patient Allergies hazelnut Allergy (Unknown, Verified 04/01/24 09:56) throat itchy Medication List - Last Reconciled 04/01/24 by Myron Madrid MD albuterol sulfate 90 mcg/actuation 1 inh inhalation QID PRN 30 days bupropion HCl XL 150 mg PO QAM cholecalciferol (vitamin D3) 50 mcg PO DAILY 90 days clonazepam 1 mg PO DAILY PRN fluticasone propionate 110 mcg/actuation inhalation prazosin 2 mg PO BID trazodone mg PO BEDTIME PRN Tobacco use date assessed: 04/01/24 Dental Screening Dental Screen Date: 01/09/24 HPI [id number] HPI Details 33-year-old male presents to the office for a sick visit. Patient presents for a sick visit. Reporting symptoms of sinus congestion, sore throat and difficulty swallowing. Low-grade fever. No family member is sick. No recent travel. Patient reports symptoms of malaise and fatigue. Symptoms present for the past 2 and half weeks. He was seen at the urgent care center and started on doxycycline and prednisone. Patient reports no improvement in symptoms. 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 No history of smoking. [facility] Medical History Asthma MDD (major depressive disorder) JAN (generalized anxiety disorder) ADD (attention deficit disorder) Surgical History No pertinent past surgical history Family History Father Medical history unknown Mother Depression with anxiety Chronic mental illness Mental health disorder Family/Other Diabetes Social History Housing: House Alcohol intake: current Alcohol intake frequency: 0-2 drinks per day Alcohol type: beer Patient Tobacco Use Status: Never used Tobacco e-Cigarette/Vaping Use: Never Used Second Hand Smoke Exposure: No service: No Current occupational status: employed 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 Nick Ramirez, Ema Still, Justice Vidal and colleagues, with an educational aubrey from [employer]. Physical exam (Primary Care) Vital Signs: Last Vital Signs Pulse 87 04/01/24 09:05 BP 120/78 04/01/24 09:05 Pulse Ox 97 04/01/24 09:05 Oxygen Delivery Method Room Air 04/01/24 09:05 BMI result Body Mass Index 33.5 Tobacco/Smoking Status: Tobacco use Status Tobacco use date assessed 04/01/24 04/01/24 09:13 Patient Tobacco Use Status Never used Tobacco 04/01/24 09:13 e-Cigarette/Vaping Use Never Used 04/01/24 09:13 Thrive Assessment: Date of Thrive Assessment Date Thrive assessed 09/10/23 04/01/24 09:13 Const General: cooperative and healthy appearing Nutritional Appearance: well nourished Orientation/consciousness: patient oriented x3 Limitations: no limitations HENMT Head: Yes normal to inspection Eyes General: appearance normal, both eyes and all related structures Neck Neck: Yes normal visual inspection Chest Other: Scattered wheeze bilaterally. Chest palpation & inspection: normal palpation of entire chest wall Resp Effort & Inspection: normal respiratory effort Skin Other: Maculopapular rash on the forehead and the back. Neuro General: patient oriented x3 Assessment and Plan Assessment & Plan (1) Upper respiratory tract infection: Code(s): J06.9 - Acute upper respiratory infection, unspecified Plan: Symptoms and the rash point to a viral exanthematous illness. Chest x-ray and blood work ordered. Will base further management based on the results. Orders: Orders XR chest 2V Today R05.9 - Cough, unspecified Basic Metabolic Panel Today J06.9 - Acute upper respiratory infection, unspecified Thyroid Stimulating Hormone Today J06.9 - Acute upper respiratory infection, unspecified UA and rflx microscopic Today J06.9 - Acute upper respiratory infection, unspecified Erythrocyte Sedimentation Rate Today J06.9 - Acute upper respiratory infection, unspecified Complete Blood Count no Diff Today J06.9 - Acute upper respiratory infection, unspecified Lipid Panel Today J06.9 - Acute upper respiratory infection, unspecified Liver Panel Today J06.9 - Acute upper respiratory infection, unspecified Coding Level of Care Code Est Pt Level 4 (36610) Complex EM visit Add On G2211 Diagnoses Upper respiratory tract infection J06.9
[2024-04-01 09:05] VITALS: BP 120/78; PULSE 87; O2SAT 97; BMI 33.5
== END 2024-04-01 09:44 | disposition home or self-care (01) ==
PROVIDERS: PCP Physician Assistant; Visit Provider Internal Medicine
DX: J06.9 Acute upper respiratory infection, unspecified (principal)

== ENCOUNTER 2024-07-13 09:52 | Outpatient (AMB) | payer BC, SELFPAY ==
[2024-07-13 10:08] VITALS: BP 120/84; PULSE 87; O2SAT 97; BMI 31.1
--- NOTE | 2024-07-13 10:08 | A.OFFPC_ITS ---
Vital Signs 07/13/24 10:08 Height 5 ft 6 in Weight 193 lb BMI 31.1 BP 120/84 Blood Pressure Location Lt brachial Position Sitting Pulse 87 Pulse Source Pulse Oximeter Pulse Oximetry (%) 97 Oxygen Delivery Method Room Air Intake Visit Reasons: f/u Asthma/ borderline high cholesterol Django Developer Required: No Accompanied by: Self / Same As Patient Allergies hazelnut Allergy (Unknown, Verified 07/13/24 10:12) throat itchy Medication List - Last Reconciled 07/13/24 by Rishi Galan PA-C albuterol sulfate 90 mcg/actuation 1 inh inhalation QID PRN 30 days cholecalciferol (vitamin D3) 50 mcg PO DAILY 90 days clonazepam 1 mg PO DAILY PRN escitalopram oxalate (Lexapro) 10 mg PO DAILY fluticasone propionate 110 mcg/actuation inhalation prazosin 2 mg PO BID trazodone mg PO BEDTIME PRN Tobacco use date assessed: 04/01/24 Dental Screening Dental Screen Date: 01/09/24 HPI f/u Asthma/ borderline high cholesterol HPI Details Patient is a 33 -year-old male here today for follow up Patient has a past medical history significant for major depressive disorder, anxiety, ADD, obesity, Chronic lumbar spine pain. Concern--> reports he would like to be screened for STIs Asthma: REport his asthma has been stable. Has rarely had to use his albuterol inhaler. .. Hypertriglyceridemia: Most recent lipid panel showing elevated triglycerides above 300. Has made changes in his diet and has lost weight since last office visit. Will recheck his fasting lipid panel. . MDD: feels pretty stable on currently meds. Does admit to times more depression and some isolation. Has Wellbutrin has been changed to Lexapro recently and does report feeling a bit more tired. Continues to follow a therapist and a psychiatrist. Laboratory Tests 09/03/23 04/01/24 12:42 10:16 RBC 5.56 Creatinine 1.02 Troponin I High Se ns < 2.7 Triglycerides 361 H Cholesterol 207 H PFSH Medical History (Updated 07/13/24 @ 10:14 by Rishi Galan PA-C) Asthma MDD (major depressive disorder) JAN (generalized anxiety disorder) ADD (attention deficit disorder) Surgical History No pertinent past surgical history Family History Father Medical history unknown Mother Depression with anxiety Chronic mental illness Mental health disorder Family/Other Diabetes Social History Housing: House Alcohol intake: current Alcohol intake frequency: 0-2 drinks per day Alcohol type: beer Patient Tobacco Use Status: Never used Tobacco e-Cigarette/Vaping Use: Never Used Second Hand Smoke Exposure: No service: No Current occupational status: employed Current occupation: Par[employer]etry [employer] - [employer] Current occupational exposures/hazards: No Cognitive needs: No Hearing needs: No Vision needs: Yes (glasses) Questionnaire PHQ-9 Over the last 2 weeks, how often have you been bothered by any of the following problems? 1. Little interest or pleasure in doing things: not at all 2. Feeling down, depressed, or hopeless: not at all 3. Trouble falling or staying asleep, or sleeping too much: not at all 4. Feeling tired or having little energy: not at all 5. Poor appetite or overeating: not at all 6. Feeling bad about yourself - or that you are a failure or have let yourself or your family down: not at all 7. Trouble concentrating on things, such as reading the newspaper or watching television: not at all 8. Moving or speaking so slowly that other people could have noticed. Or the opposite - being so fidgety or restless that you have been moving around a lot more than usual: not at all 9. Thoughts that you would be better off or of hurting yourself in some way: not at all Total score: 0 Depression Screening Interpretation: Negative Depression Screening Done: Yes 19457 - PHQ-9 Billing: Yes Source: Developed by Drs. Nick Ramirez, Ema Still, Justice Vidal and colleagues, with an educational aubrey from [employer]. Thrive Questionnaire Date Thrive assessed: 07/13/24 I am a: Patient What is your living situation today?: I have a steady place to live Within the past 12 months, did the food you bought not last and you didn't have the money to get more?: Never true Within the past 12 months, did you worry whether your food would run out before you got money to buy more?: Never true Do you have trouble paying for medicines?: No Do you have trouble getting transportation to medical appointments?: No Do you have trouble paying your heating and electricity bill?: No Do you have trouble taking care of your child, family member or friend?: No Do you have trouble with day-to-day activities such as bathing, preparing meals, shopping, managing finances, etc.?: No Are you currently unemployed and looking for a job?: No Are you interested in more education?: No Please select the resources that you would like help with: None THRIVE Score: 0 AUDIT C Alcohol Use Questionnaire (AUDIT-C) 1. How often do you have a drink containing alcohol?: 4 or more times a week 2. How many drinks containing alcohol do you have on a typical day when you are drinking?: 3 or 4 3. How often do you have six or more drinks on one occasion?: Daily or almost daily Total Score: 9 JAN-7 AMB Questionnaire JAN-7 Date JAN - 7 assessed: 09/10/23 Source: Developed by Drs. Nick Ramirez, Ema Still, Justice Vidal and colleagues, with an educational aubrey from [employer]. Review of Systems Const Denies headache(s) Eyes Denies loss of vision ENT Denies vertigo, Denies dizziness, Denies headache(s) and Denies sore throat Card Denies chest pain, Denies leg edema and Denies lightheadedness Resp Denies cough, Denies hemoptysis and Denies wheezing GI Denies abdominal pain, Denies melena, Denies constipation, Denies diarrhea and Denies vomiting Denies dysuria, Denies urinary frequency and Denies urinary urgency Musc Denies arthralgias, Denies joint swelling, Denies numbness and Denies tingling Neuro Denies Abnormal speech present, Denies behavioral changes, Denies vertigo, Denies dizziness, Denies headache(s), Denies loss of vision, Denies memory loss, Denies numbness and Denies tingling Psych Denies anxiety, Denies behavioral changes, Denies depression, Denies memory loss and Denies panic attacks Manjit/Lymph Denies easy bleeding and Denies easy bruising Aller/Immun Denies wheezing Physical exam (Primary Care) Vital Signs: Last Vital Signs Pulse 87 07/13/24 10:08 BP 120/84 07/13/24 10:08 Pulse Ox 97 07/13/24 10:08 Oxygen Delivery Method Room Air 07/13/24 10:08 BMI result Body Mass Index 31.1 Tobacco/Smoking Status: Tobacco use Status Tobacco use date assessed 04/01/24 07/13/24 10:09 Patient Tobacco Use Status Never used Tobacco 07/13/24 10:09 e-Cigarette/Vaping Use Never Used 07/13/24 10:09 PHQ-9: PHQ-9 Score PHQ-9: Total score 0 07/13/24 10:11 Depression Screening Interpretation: Negative Thrive Assessment: Date of Thrive Assessment Date Thrive assessed 07/13/24 07/13/24 10:11 Const General: healthy appearing, no acute distress, alert and awake Nutritional Appearance: well nourished Orientation/consciousness: oriented to person, oriented to place and oriented to time HENMT Ears: TM's normal bilaterally General nose exam: Normal nasal mucous membranes and turbinates present Eyes Conjunctivae: conjunctivae normal Sclerae: sclerae normal Pupils: Equal, round and reactive pupils present Neck Neck: Yes no lymphadenopathy and Yes no JVD Thyroid: Thyroid normal Carotids: no bruits Resp Effort & Inspection: normal respiratory effort and not tachypneic Auscultation: no crackles, no rales, no rhonchi and no wheezes Cardio Rate: regular rate Rhythm: regular rhythm Heart sounds: no murmurs and normal S1 and S2 GI Palpation (GI): Soft to palpation, nontender, no hepatomegaly and no splenomegaly Auscultation: normal bowel sounds Skin General skin exam: no rashes or lesions noted and dry skin Neuro General: oriented to person, oriented to place and oriented to time Cranial nerves: Yes Equal, round and reactive pupils present Speech: No Abnormal speech present Gait exam (Neuro): Normal gait present Motor exam (neuro): no tremor noted Extrem Right upper extremity: full ROM Left upper extremity: full ROM Right lower extremity: full ROM; no edema Left lower extremity: full ROM; no edema Psych Mental Status: mental status grossly normal Speech and movement: Normal speech and movement present Affect: normal affect Attitude: cooperative Thought process: Normal thought process present Office Procedures Flu Questionnaire Does the patient have a severe egg allergy?: No Does the patient have severe life threatening allergies?: No Does the patient have a fever or illness today?: No Has the patient ever had Guillain-Galt Syndrome?: No Has the patient ever had any past reaction to a flu shot?: No Immunizations Fluarix Triv [id number] (PF) 45 mcg (15 mcg x 3)/0.5 mL IM syringe Performing Provider: Rishi Galan PA-C Performing Location: [facility] [place] Administered by: URMILA Floyd on 07/13/24 10:09 Dose Route Admin Location Dispensed Lot Number Expiration Date NDC Senior Telecommunications Engineer 0.5 mL IM Left Deltoid 0.5 mL [id number] 01/11/25 [id number] [employer] VIS Given Date VIS Provided VIS Publication Date 07/13/24 Single Vaccine 21 Eligibility Eligibility Date Funding Source Not [facility] Eligible 07/13/24 Private Coding Level of Care Code Est Pt Level 4 (24139) Diagnoses Borderline high cholesterol E78.9 Mild episode of recurrent major depressive disorder F33.0 Active/Remission status: currently active Major depression episode severity: mild Major depression recurrence: recurrent Mild persistent asthma without complication J45.30 Asthma complication type: uncomplicated Asthma persistence: persistent Asthma severity: mild Encounter for screening examination for sexually transmitted disease Z11.3 Additional Codes PHQ-9 - 80413 - PHQ-9 Billing: Yes ([id number]) Assessment & Plan Assessment & Plan (1) Borderline high cholesterol: Code(s): E78.9 - Disorder of lipoprotein metabolism, unspecified Category: Medical Plan: Patient has a history of borderline high cholesterol and hypertriglyceridemia. Has made some dietary changes and lost weight since last office visit. Will recheck fasting labs to evaluate total cholesterol and triglycerides (2) MDD (major depressive disorder): Code(s): F32.9 - Major depressive disorder, single episode, unspecified Category: Medical Qualifiers: Active/Remission status: currently active Major depression episode severity: mild Major depression recurrence: recurrent Qualified Code(s): F33.0 - Major depressive disorder, recurrent, mild Plan: Air and does seem to be still suffering with depression. Does speak with a mental health therapist and has made a change in his antidepressant from Wellbutrin to Lexapro. (3) Asthma: Code(s): J45.909 - Unspecified asthma, uncomplicated Category: Medical Qualifiers: Asthma complication type: uncomplicated Asthma persistence: persistent Asthma severity: mild Qualified Code(s): J45.30 - Mild persistent asthma, uncomplicated Plan: He reports his asthma has been well controlled with only p.r.n. use of his albuterol inhaler. Has not had any recent exacerbations or nighttime awakenings with asthma symptoms. (4) Encounter for screening examination for sexually transmitted disease: Code(s): Z11.3 - Encounter for screening for infections with a predominantly sexual mode of transmission Category: Medical Plan: Patient interested in getting screened for STIs. Orders: Orders Influenza [id number] Immunization Today Z23 - Encounter for immunization Syphilis Screen Today Z11.3 - Encounter for screening for infections with a predominantly sexual mode of transmission CT NG by PCR Today Z11.3 - Encounter for screening for infections with a predominantly sexual mode of transmission, Z20.2 - Contact with and (suspected) exposure to infections with a predominantly sexual mode of transmission Lipid Panel Today E78.9 - Disorder of lipoprotein metabolism, unspecified Testosterone, Free/Total Today R53.83 - Other fatigue HIV Ab/Ag Today Z11.3 - Encounter for screening for infections with a predominantly sexual mode of transmission Comprehensive [place]. Panel Fast Today E78.9 - Disorder of lipoprotein metabolism, unspecified
== END 2024-07-13 10:20 | disposition home or self-care (01) ==
PROVIDERS: PCP Physician Assistant; Visit Provider Physician Assistant
DX: E78.9 Disorder of lipoprotein metabolism, unspecified (principal); F33.0 Major depressive disorder, recurrent, mild; J45.30 Mild persistent asthma, uncomplicated; Z11.3 Encounter for screening for infections with a predominantly sexual mode of transmission; Z23 Encounter for immunization

== ENCOUNTER 2024-07-13 09:52 | Outpatient (REF) | payer BC, SELFPAY ==
--- OUTSIDE RECORDS SUMMARY | 2024-07-13 10:32 | XMS_ITS ---
Author Name [facility] Organization Unknown History of Medication Use Medication Directions Dispensed Refills Start Date End Date Stat ARIPiprazole (ABILIFY) 10 MG tablet Take 10 mg by mouth daily. 07/01/2022 active clonazePAM (KlonoPIN) 1 MG tablet 07/01/2022 active lisdexamfetamine (VYVANSE) 20 MG capsule Take 20 mg by mouth every morning. 07/01/2022 active baclofen (LIORESAL) 10 MG tablet Take 10 mg by mouth 3 (three) times a day. 07/01/2022 active Problems Problem Status Onset Date Problem Type Date of Resoluti on Source Sore throat [facility]
[2024-07-13 11:54] LABS: HIV AB/AG Nonreactive (Nonreactive); HIV Num 1 0.05 S/CO (0.00-0.99); Syphilis Screen Nonreactive (Nonreactive)
[2024-07-13 13:31] LABS: CT PCR NOT DETECTED (Not Detect.); NG PCR NOT DETECTED (Not Detect.)
[2024-07-17 20:48] LABS: Testosterone, Free 58.6 pg/mL (35.0-155.0); Testosterone, Total 317 ng/dL (250-1100)
== END 2024-07-13 09:53 | disposition home or self-care (01) ==
LOC: HO.LAB 09:52
PROVIDERS: PCP Physician Assistant; Visit Provider Physician Assistant
DX: Z23 Encounter for immunization (principal); E78.9 Disorder of lipoprotein metabolism, unspecified; F33.0 Major depressive disorder, recurrent, mild; J45.30 Mild persistent asthma, uncomplicated; Z20.2 Contact with and (suspected) exposure to infections with a predominantly sexual mode of transmission
CPT/HCPCS: 84402; 84403; 86780; 87389; 87491; 87591; 90471; 90656; 96127

== ENCOUNTER 2025-01-12 07:56 | Outpatient (AMB) | payer BC, SELFPAY ==
--- OUTSIDE RECORDS SUMMARY | 2025-01-12 08:00 | XMS_ITS | Clinical Summary ---
Author Organization [facility]ly [facility] Address [address] [place] [address] Care Team Providers Care Technical Sme Name Role Phone Unknown Primary Care Provider [phone] Allergies No known active allergies Medications lisdexamfetamine (VYVANSE) 20 MG capsule Take 20 mg by mouth every morning. Active baclofen (LIORESAL) 10 MG tablet Take 10 mg by mouth 3 (three) times a day. Active ARIPiprazole (ABILIFY) 10 MG tablet Take 10 mg by mouth daily. Active clonazePAM (KlonoPIN) 1 MG tablet 06/29/2022 Active Social History Tobacco Use Types Packs/Day Years Used Date Smoking Tobacco: Never Assessed Sex and Gender Information Value Date Recorded Sex Assigned at Not on file Legal Sex Male 1:56 PM EST Gender Identity Not on file Sexual Orientation Not on file Last Filed Vital Signs Vital Sign Reading Time Taken Comments Blood Pressure 149/99 06/30/2022 2:22 PM EST Pulse 87 06/30/2022 2:22 PM EST Temperature 37.1 C (98.8 F) 06/30/2022 2:22 PM EST Respiratory Rate - - Oxygen Saturation 98% 06/30/2022 2:22 PM EST Inhaled Oxygen Concentration - - Weight 79.4 kg (175 lb) 06/30/2022 2:22 PM EST Height - - Body Mass Index - - Plan of Treatment Health Maintenance Due Date Last Done Comments Hepatitis C Virus Screening 1989 HIV Screening 2002 DTaP/Tdap/Td Vaccines (1 - Tdap) 2008 Hepatitis B Vaccines (1 of 3 - 19+ 3-dose series) 2008 COVID-19 Vaccine (2 2023-2 5 season) 2024 05/03/2022 Influenza Vaccine 02/12/2025 HPV Vaccines Aged Out No longer eligi ble based on patient's age to complete this topic Pneumococcal Vaccine: Pediat ellie (0-5 Years) and At-Risk Patients (6 to 49 Years) Aged Out No longer eligible b ased on patient's age to complete this topic Insurance [facility] - PPO Care Teams Technical Sme Relationship Specialty Start Date End Date Unknown Unknow Provider Address PCP - General 06/30/22
--- OUTSIDE RECORDS SUMMARY | 2025-01-12 08:00 | XMS_ITS | Clinical Summary ---
Author Organization [facility] Address [address] [place] [address] Care Team Providers Care Adjunct Psychology Instructor Name Role Phone Unavailable Primary Care Provider Unavailabl e Social History Tobacco Use Types Packs/Day Years Used Date Smoking Tobacco: Never Assessed Sex and Gender Information Value Date Recorded Sex Assigned at Not on file Legal Sex Male 11:19 PM EST Gender Identity Not on file Sexual Orientation Not on file Plan of Treatment Health Maintenance Due Date Last Done Comments DTaP,Tdap,and Td Vaccines (1 - Tdap) 2008 Hepatitis B Vaccines (1 of 3 - 19+ 3-dose series) 2008 COVID-19 Vaccine (2023-2 5 season) 2024 Influenza Vaccine (Season Ended) 2025 HIB Vaccines Aged Out No longer eligi ble based on patient's age to complete this topic HPV Vaccines Aged Out No longer eligi ble based on patient's age to complete this topic Hepatitis A Vaccines Aged Out No long er eligible based on patient's age to complete this topic IPV Vaccines Aged Out No longer eligi ble based on patient's age to complete this topic MMR Vaccines Aged Out No longer eligi ble based on patient's age to complete this topic Meningococcal ACWY Vaccine Aged Out N o longer eligible based on patient's age to complete this topic Meningococcal B Vaccine Aged Out No l onger eligible based on patient's age to complete this topic Pneumococcal Vaccine: Pediat rics (0 to 5 Years) and At-Risk Patients (6 to 64 Years) Aged Out No longer eligible b ased on patient's age to complete this topic RSV Immunization Patients Un jose 20 months Aged Out No longer eligible b ased on patient's age to complete this topic Varicella Vaccines Aged Out No longer eligible based on patient's age to complete this topic
--- OUTSIDE RECORDS SUMMARY | 2025-01-12 08:00 | XMS_ITS ---
Author Name [facility] Organization Unknown History of Medication Use Medication Directions Dispensed Refills Start Date End Date Stat us ARIPiprazole (ABILIFY) 10 MG tablet Take 10 mg by mouth daily. active baclofen (LIORESAL) 10 MG tablet Take 10 mg by mouth 3 (three) times a day. active Problems Problem Status Onset Date Problem Type Date of Resoluti on Source Sore throat active EncounterDiagnosisAct CCT Encounters Encounter Type Encounter Reason Primary Diagnosis Location Date Ambulatory Acute pharyngiti s, unspecified [facility] 06/30/2022 Care Team Organization Name Specialty Phone Email Start Date End Da te [facility] 06/30/2022 06/30/2022 [facility] 06/30/2022
[2025-01-12 08:04] VITALS: BP 118/86; PULSE 89; O2SAT 97; BMI 32.9
--- NOTE | 2025-01-12 08:04 | MHC.PC.OV ---
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 Accompanied by: Self / Same As Patient Allergies hazelnut Allergy (Unknown, Verified 01/12/25 08:12) throat itchy Medication List - Last Reconciled 01/12/25 by Rishi Galan PA-C albuterol sulfate 90 mcg/actuation 1 inh inhalation QID PRN 30 days aripiprazole 2 mg PO BEDTIME cholecalciferol (vitamin D3) 50 mcg PO DAILY 90 days clonazepam 1 mg PO DAILY PRN dextroamphetamine-amphetamine 15 mg ER 1 cap PO BID fluticasone propionate 110 mcg/actuation inhalation prazosin 2 mg PO BID trazodone mg PO BEDTIME PRN Tobacco use date assessed: 01/12/25 Dental Screening Dental Screen Date: 01/12/25 Did you have a dental visit in the last 12 months?: Yes Did you have a dental problem in the last 6 months where you did not have access to dental care?: No Was dental information given to patient?: Patient has dentist HPI Annual exam HPI Details Patient is a 34 -year-old male here today for routine annual physical.. Patient has a past medical history significant for major depressive disorder, anxiety, ADD, obesity, Chronic lumbar spine pain. Concern--> The patient experiences hand and wrist pain, primarily in the left hand, which affects his daily activities and work. 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 PLAN: Will send for EMG testing of bilateral upper extremities to evaluate for carpal tunnel or cubital tunnel syndrome. He would likely benefit from occupational therapy to help with his hand pain and dexterity. The patient reports a history elevated blood pressure readings, with recent home blood pressure readings reaching 155/121 mmHg, indicating stage 2 hypertension. He has been monitoring his blood pressure at home and has noted elevated readings, particularly in the mornings. He acknowledges a need to reduce caffeine and alcohol intake to manage his blood pressure better. .. Alcohol use disorder: The patient admits to consuming at least three beers daily, acknowledging that this is more than he should be drinking. He does not consume hard liquor and denies the use of recreational drugs. Asthma: REport his asthma has been stable. Has rarely had to use his albuterol inhaler. .. Hypertriglyceridemia: Most recent lipid panel showing elevated triglycerides above 300. Has made changes in his diet and has lost weight since last office visit. Will recheck his fasting lipid panel. . MDD: feels pretty stable on currently meds. Does admit to times more depression and some isolation. Has Wellbutrin has been changed to Lexapro recently and does report feeling a bit more tired. Continues to follow a therapist and a psychiatrist. Vaccine: UTD with Tdap, up-to-date with COVID vaccine [facility] Medical History Asthma MDD (major depressive disorder) JAN (generalized anxiety disorder) ADD (attention deficit disorder) Surgical History No pertinent past surgical history Family History Father Medical history unknown Mother Depression with anxiety Chronic mental illness Mental health disorder Family/Other Diabetes Social History (Updated 01/12/25 @ 08:16 by Rishi Galan PA-C) Housing: House Alcohol intake: current Alcohol intake frequency: 3 or more drinks per day Alcohol type: beer Patient Tobacco Use Status: Never used Tobacco e-Cigarette/Vaping Use: Never Used Second Hand Smoke Exposure: No service: No Current occupational status: employed 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 1. Little interest or pleasure in doing things: several days 2. Feeling down, depressed, or hopeless: several days 3. Trouble falling or staying asleep, or sleeping too much: several days 4. Feeling tired or having little energy: several days 5. Poor appetite or overeating: not at all 6. Feeling bad about yourself - or that you are a failure or have let yourself or your family down: not at all 7. Trouble concentrating on things, such as reading the newspaper or watching television: several days 8. Moving or speaking so slowly that other people could have noticed. Or the opposite - being so fidgety or restless that you have been moving around a lot more than usual: not at all 9. Thoughts that you would be better off or of hurting yourself in some way: not at all Total score: 5 Depression Screening Interpretation: Positive Depression Screening Follow-up: Existing condition and In treatment Depression Screening Done: Yes 77172 - PHQ-9 Billing: Yes Source: Developed by Drs. Nick Ramirez, Ema Still, Justice Vidal and colleagues, with an educational aubrey from [employer]. Thrive Questionnaire Date Thrive assessed: 01/12/25 I am a: Patient What is your living situation today?: I have a steady place to live Within the past 12 months, did the food you bought not last and you didn't have the money to get more?: I choose not to answer this question Within the past 12 months, did you worry whether your food would run out before you got money to buy more?: I choose not to answer this question Do you have trouble paying for medicines?: No Do you have trouble getting transportation to medical appointments?: No Do you have trouble paying your heating and electricity bill?: No Do you have trouble taking care of your child, family member or friend?: No Do you have trouble with day-to-day activities such as bathing, preparing meals, shopping, managing finances, etc.?: I choose not to answer this question Are you currently unemployed and looking for a job?: No Are you interested in more education?: I choose not to answer this question Please select the resources that you would like help with: None Currently or been in a relationship where the following occur: I choose not to answer THRIVE Score: 0 AUDIT C Alcohol Use Questionnaire (AUDIT-C) 1. How often do you have a drink containing alcohol?: 4 or more times a week 2. How many drinks containing alcohol do you have on a typical day when you are drinking?: 3 or 4 3. How often do you have six or more drinks on one occasion?: Monthly Total Score: 7 JAN-7 AMB Questionnaire JAN-7 Date JAN - 7 assessed: 01/12/25 Feeling nervous, anxious, or on edge: 3 = Nearly every day Not being able to stop or control worryin = More than half the days Worrying too much about different things: 2 = More than half the days Trouble relaxin = More than half the days Being so restless that it is hard to sit still: 2 = More than half the days Becoming easily annoyed or irritable: 3 = Nearly every day Feeling afraid as if something awful might happen: 0 = Not at all Total JAN-7 score (0-4 normal; 5-9 mild; 10-14 moderate; 15-21 severe): 14 Source: Developed by Drs. Nick Ramirez, Ema Still, Justice Vidal and colleagues, with an educational aubrey from [employer]. JAN-7 Assessment Billing JAN-7 Assessment Tool: JAN-7 Assessment 50423 ACT Questionnaire In the past 4 weeks, how much of the time did your asthma keep you from getting as much done at work, school or at home?: None of the time During the past 4 weeks, how often have you had shortness of breath?: Not at all During the past 4 weeks, how often did your asthma symptoms wake you up at night or earlier than usual in the morning?: Not at all During the past 4 weeks, how often have you had to use your rescue inhaler or nebulizer medication?: Not at all How would you rate your asthma control during the past 4 weeks?: Completely controlled ACT Interpretation: Negative Score: 25 Review of Systems Const Denies body aches, Denies chills, Denies excessive sweating, Denies fatigue, Denies fever(s) and Denies headache(s) Eyes Denies blurry vision ENT Denies dysphagia, Denies vertigo, Denies dizziness, Denies headache(s), Denies hearing loss and Denies tinnitus Card Denies chest pain, Denies chest pain with activity, Denies syncope, Denies irregular heart rhythm and Denies dyspnea Resp Denies chest congestion, Denies cough, Denies hemoptysis, Denies dyspnea and Denies wheezing GI Denies abdominal pain, Denies melena, Denies hematochezia, Denies coffee ground emesis, Denies dysphagia, Denies diarrhea, Denies nausea and Denies vomiting Denies difficulty urinating, Denies dysuria, Denies urinary frequency, Denies urinary hesitancy and Denies urinary urgency Musc Denies arthralgias, Denies limited range of motion, Denies muscle cramps and Denies muscle weakness Skin/Breast Denies rash and Denies skin ulcer Neuro Denies Abnormal speech present, Denies confusion, Denies vertigo, Denies dizziness, Denies syncope, Denies headache(s), Denies memory loss and Denies seizure-like activity Psych Denies anxiety, Denies confusion, Denies depression, Denies memory loss, Denies panic attacks and Denies paranoia Endo Denies excessive sweating, Denies fatigue, Denies flushing, Denies polydipsia and Denies polyuria Aller/Immun Denies wheezing Physical exam (Primary Care) Vital Signs: Last Vital Signs Pulse 89 01/12/25 08:04 BP 118/86 01/12/25 08:04 Pulse Ox 97 01/12/25 08:04 Oxygen Delivery Method Room Air 01/12/25 08:04 BMI result Body Mass Index 32.9 Tobacco/Smoking Status: Tobacco use Status Tobacco use date assessed 01/12/25 01/12/25 08:09 Patient Tobacco Use Status Never used Tobacco 01/12/25 08:09 e-Cigarette/Vaping Use Never Used 01/12/25 08:09 PHQ-9: PHQ-9 Score PHQ-9: Total score 5 01/12/25 08:09 Depression Screening Interpretation: Positive Depression Screening Follow-up: Existing condition and In treatment Thrive Assessment: Date of Thrive Assessment Date Thrive assessed 01/12/25 01/12/25 08:09 Currently or been in a relationship where the following occur: I choose not to answer Const General: cooperative, comfortable, no acute distress, alert and awake; No confusion Orientation/consciousness: oriented to person, oriented to place, patient oriented x3 and No confusion HENMT Head: Yes normocephalic Ears: external ears normal and TM's normal bilaterally Face and sinus: No sinus tenderness Mouth: Normal oral and palatal mucosa present and tongue normal Teeth and gingiva: dentition normal and gingiva normal Throat: Yes posterior oropharynx normal, Yes tonsils normal and Yes uvula midline Eyes Conjunctivae: conjunctivae normal Sclerae: sclerae normal Pupils: Equal, round and reactive pupils present EOM: EOMs intact bilaterally Direct Ophthalmoscopy: No no photophobia Neck Neck: Yes no lymphadenopathy, No tender and Yes no JVD Thyroid: Thyroid normal Carotids: no bruits Chest Chest palpation & inspection: no tenderness Resp Effort & Inspection: normal respiratory effort, no audible wheezes, not labored and no stridor Auscultation: no crackles, no rales, no rhonchi and no wheezes Cardio Jugular venous distension: no JVD Rate: regular rate, not bradycardic and not tachycardic Rhythm: regular rhythm Bruits: no carotid bruits Peripheral pulses: Peripheral pulses 2+ throughout GI Inspection: Yes normal to inspection, No abdominal wall ecchymosis and No visible herniation Palpation (GI): Soft to palpation, nontender, no guarding, not rigid and No hepatosplenomegaly present Auscultation: normoactive bowel sounds General: Yes no CVA tenderness Back/Spine/Pelvis Back: no CVA tenderness and No back tenderness Cervical Spine: cervical ROM normal Thoracic/Lumbar Spine: thoracic and lumbar spine normal to inspection, straight leg raise negative bilaterally, No thoraco-lumbar ROM limited and No lumbar spinal tenderness Skin Lesions: no lesions Rashes: no rashes Wounds: no wounds Neuro General: oriented to person, oriented to place, patient oriented x3, CN's II-XI intact bilaterally and No confusion Cranial nerves: Yes Equal, round and reactive pupils present and Yes Normal accommodation reflex present Cognition (Neuro): normal cognition Speech: No Abnormal speech present Gait exam (Neuro): Normal gait present Motor exam (neuro): 5/5 motor strength present throughout Extrem Right upper extremity: full ROM; no cyanosis Left upper extremity: full ROM; no cyanosis Right lower extremity: no edema Left lower extremity: no edema Psych Appearance: grossly normal Mental Status: mental status grossly normal Affect: normal affect Attitude: cooperative Thought process: Normal thought process present Coding Level of Care Code Est Pt Prev Care 18-39y(27222) Diagnoses Annual physical exam Z00.00 Borderline high cholesterol E78.9 Mild episode of recurrent major depressive disorder F33.0 Major depression recurrence: recurrent Active/Remission status: currently active Major depression episode severity: mild Mild persistent asthma without complication J45.30 Asthma severity: mild Asthma persistence: persistent Asthma complication type: uncomplicated Class 1 obesity E66.811 Elevated blood pressure reading R03.0 Left hand paresthesia R20.2 Left hand pain M79.642 Right hand paresthesia R20.2 Lumbar radiculopathy, chronic M54.16 Additional Codes Asthma Control Questionnaire - ACT Interpretation: Negative ([id number]) PHQ-9 - 26869 - PHQ-9 Billing: Yes ([id number]) JAN-7 Assessment Billing - JAN-7 Assessment Tool: JAN-7 Assessment 52016 ([id number]) Assessment & Plan Assessment & Plan (1) Annual physical exam: Code(s): Z00.00 - Encounter for general adult medical examination without abnormal findings Category: Medical Plan: as per HPI (2) Borderline high cholesterol: Code(s): E78.9 - Disorder of lipoprotein metabolism, unspecified Category: Medical Plan: Patient has a history of borderline high cholesterol and hypertriglyceridemia. Has made some dietary changes and lost weight since last office visit. Will recheck fasting labs to evaluate total cholesterol and triglycerides (3) MDD (major depressive disorder): Code(s): F32.9 - Major depressive disorder, single episode, unspecified Category: Medical Qualifiers: Major depression recurrence: recurrent Active/Remission status: currently active Major depression episode severity: mild Qualified Code(s): F33.0 - Major depressive disorder, recurrent, mild Plan: Patient's PHQ-9 score positive for depression which has been existing condition for him.. [place] does seem to be still suffering with depression. Does speak with a mental health therapist and has made a change in his antidepressant from Wellbutrin to Lexapro. (4) Asthma: Code(s): J45.909 - Unspecified asthma, uncomplicated Category: Medical Qualifiers: Asthma severity: mild Asthma persistence: persistent Asthma complication type: uncomplicated Qualified Code(s): J45.30 - Mild persistent asthma, uncomplicated Plan: He reports his asthma has been well controlled with only p.r.n. use of his albuterol inhaler. Has not had any recent exacerbations or nighttime awakenings with asthma symptoms. (5) Class 1 obesity: Code(s): E66.811 - Obesity, class 1 Category: Medical Plan: Patient does understand his BMI is over 30 will be working on better eating habits and being more physically active to reduce his weight. (6) Elevated blood pressure reading: Code(s): R03.0 - Elevated blood-pressure reading, without diagnosis of hypertension Category: Medical Plan: The patient is advised to implement lifestyle modifications, including reducing alcohol and caffeine intake, increasing physical activity, and managing weight to control blood pressure. If lifestyle changes do not adequately control blood pressure, pharmacological intervention with medications such as hydrochlorothiazide or lisinopril may be considered. (7) Left hand paresthesia: Code(s): R20.2 - Paresthesia of skin Category: Medical Plan: As per HPI patient has been experiencing left hand pain and some numbness over the 5th and 4th digit. 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 He is interested in getting nerve testing and doing occupational therapy (8) Left hand pain: Code(s): M79.642 - Pain in left hand Category: Medical Plan: As above (9) Right hand paresthesia: Code(s): R20.2 - Paresthesia of skin Category: Medical Plan: As above (10) Lumbar radiculopathy, chronic: Code(s): M54.16 - Radiculopathy, lumbar region Category: Medical Plan: An x-ray of the lumbar spine is ordered to evaluate the cause of chronic back pain. He has done physical therapy in the distant past in his tried [id number] analgesics along with muscle relaxers did have significantly reduced his pain. Consideration for an MRI will be given if x-ray results are inconclusive and symptoms persist. Baclofen is prescribed as needed for muscle relaxation and pain management. Orders: Orders Syphilis Screen Today Z11.3 - Encounter for screening for infections with a predominantly sexual mode of transmission Hepatitis B,C Profile Today Z11.3 - Encounter for screening for infections with a predominantly sexual mode of transmission CT NG by PCR Vag/Cerv Today Z11.3 - Encounter for screening for infections with a predominantly sexual mode of transmission, Z20.2 - Contact with and (suspected) exposure to infections with a predominantly sexual mode of transmission XR hand LT 2V Today M79.642 - Pain in left hand NE electromyogram (EMG) Today R20.2 - Paresthesia of skin NE nerve conduction velocity Today R20.2 - Paresthesia of skin OT Evaluation and Treatment Today M79.642 - Pain in left hand XR lumbar spine 2-3V Today M54.16 - Radiculopathy, lumbar region MR lumbar spine w con Today M54.16 - Radiculopathy, lumbar region HIV Ab/Ag Today Z11.3 - Encounter for screening for infections with a predominantly sexual mode of transmission Medications: New baclofen 10 mg PO DAILY PRN 30 tabs 1RF muscle spasm 30 days M54.16 - Radiculopathy, lumbar region
== END 2025-01-12 08:43 | disposition home or self-care (01) ==
LOC: HO.HMCH 07:57
PROVIDERS: PCP Physician Assistant; Visit Provider Physician Assistant
DX: Z00.00 Encounter for general adult medical examination without abnormal findings (principal); E78.9 Disorder of lipoprotein metabolism, unspecified; F33.0 Major depressive disorder, recurrent, mild; J45.30 Mild persistent asthma, uncomplicated; E66.811 Obesity, class 1; R03.0 Elevated blood-pressure reading, without diagnosis of hypertension; R20.2 Paresthesia of skin; M79.642 Pain in left hand; M54.16 Radiculopathy, lumbar region

== ENCOUNTER → 2025-01-12 07:56 | Outpatient (BNVA) | payer BC, SELFPAY | PROVIDERS: PCP Physician Assistant; Visit Provider Physician Assistant | DX: Z00.00 Encounter for general adult medical examination without abnormal findings (principal); M79.642 Pain in left hand; M25.532 Pain in left wrist; R03.0 Elevated blood-pressure reading, without diagnosis of hypertension; J45.909 Unspecified asthma, uncomplicated; E78.1 Pure hyperglyceridemia; E78.9 Disorder of lipoprotein metabolism, unspecified; F33.0 Major depressive disorder, recurrent, mild; J45.30 Mild persistent asthma, uncomplicated; E66.811 Obesity, class 1; R20.2 Paresthesia of skin; M54.16 Radiculopathy, lumbar region | CPT/HCPCS: 96127; 96160 ==

== ENCOUNTER 2025-01-18 07:58 | Outpatient (REF) | payer BC, SELFPAY ==
--- NOTE | ~2025-01-18 | XR_ITS ---
CLINICAL HISTORY: M54.16 - Radiculopathy, lumbar region 3 views lumbar spine Comparison: None provided Findings: Grade 1 spondylolytic anterolisthesis at L5/S1. Mild grade 1 retrolisthesis at L2/L3 and L3/L4 2 cm heterotopic ossification posterior to the L4 facet joint. No acute fracture. No significant disc space narrowing. IMPRESSION: Grade 1 spondylolytic anterolisthesis at L5/S1. This document has been electronically signed by: Clarisa Maya MD on 01/19/2025 11:14:52
--- NOTE | ~2025-01-18 | XR_ITS ---
CLINICAL HISTORY: M79.642 - Pain in left hand 3 view left hand Comparison: None provided Findings: No fractures or dislocations. No significant loss of joint space or osteophytes. No erosions. No radiopaque foreign body. IMPRESSION: 1. No acute findings This document has been electronically signed by: Amanda Truong MD on 01/19/2025 11:48:01
--- OUTSIDE RECORDS SUMMARY | 2025-01-18 08:01 | XMS_ITS | Clinical Summary ---
Author Organization [facility] ity Address [address] [place] [address] Care Team Providers Care Personnel Officer Name Role Phone Unavailable Primary Care Provider [...] Vaccine (2023-2 5 season) 2024 Influenza Vaccine (#1) 2025 HIB Vaccines Aged Out No longer [...]
[2025-01-18 10:16] LABS: Alanine Aminotransferase 41 U/L (0-40); Albumin Level 4.9 g/dL (3.5-5.0); Alkaline Phosphatase 82 U/L (39-117); Anion Gap 16 (12-20); Aspartate Amino Transferase 30 U/L (5-37); Blood Urea Nitrogen 16 mg/dL (9-16); Calcium 9.6 mg/dL (8.4-10.2); Carbon Dioxide 26 mmol/L (22-29); Chloride 102 mmol/L (96-108); Cholesterol 229 mg/dL (<200); Estimated Glomerular Filt Rate > 60; HDL Cholesterol 51 mg/dL (>40); Potassium 3.8 mmol/L (3.3-5.1); Sodium 140 mmol/L (135-145); Total Protein 7.6 g/dL (6.5-8.0); Triglycerides 253 mg/dL (<150)
[2025-01-19 08:18] LABS: Syphilis Screen Nonreactive (Nonreactive)
[2025-01-19 08:29] LABS: HBS Num1 9.85 mIU/mL (0-7.99); HBc Num1 0.03 S/CO (0.00-0.79); HBsAGNum1 0.32 S/CO (0.00-0.99); HIV Num 1 0.04 S/CO (0.00-0.99); Hepatitis B Surface Antigen Negative (Negative); ~HepC Num1 0.06 S/CO (0.00-0.79); ~Hepatitis C Antibody Nonreactive (Nonreactive)
[2025-01-19 10:24] LABS: HBS Num2 9.93 mIU/mL (0-7.99); HBS Num3 9.13 mIU/mL (0-7.99); ~Hepatitis B Surface Antibody GRAYZONE (Nonreactive)
== END 2025-01-18 07:59 | disposition home or self-care (01) ==
LOC: HO.LAB 07:58
PROVIDERS: PCP Physician Assistant; Visit Provider Physician Assistant
DX: E78.9 Disorder of lipoprotein metabolism, unspecified (principal); Z11.3 Encounter for screening for infections with a predominantly sexual mode of transmission; M79.642 Pain in left hand; M54.16 Radiculopathy, lumbar region
CPT/HCPCS: 36415; 72100; 73120; 80053; 80061; 86704; 86706; 86780; 86803; 87340; 87389

== ENCOUNTER → 2025-01-18 08:15 | Outpatient (BNV) | payer BC, SELFPAY | PROVIDERS: PCP Physician Assistant; Visit Provider Radiology Diagnostic Radiology | DX: M54.16 Radiculopathy, lumbar region (principal); M79.642 Pain in left hand | CPT/HCPCS: 72100; 73120 ==

== ENCOUNTER 2025-02-08 12:51 | Outpatient (AMB) | payer BC, SELFPAY ==
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
[2025-02-08 12:59] VITALS: BP 144/98; PULSE 90; RESP 16; O2SAT 96; BMI 32.4
--- OUTSIDE RECORDS SUMMARY | 2025-02-08 13:31 | XMS_ITS | Clinical Summary ---
Author Organization [facility] Address [address] [place] [address] Care Team Providers Care Correctional Nurse Name Role Phone Unavailable Primary Care Provider [...] 2008 COVID-19 Vaccine (2023-2 5 season) 2024 Depression Screening 07/15/2024 Influenza Vaccine (#1) 2025 HIB Vaccines Aged [...] 5 Years) and At-Risk Patients (6 to 49 [...]
--- OUTSIDE RECORDS SUMMARY | 2025-02-08 13:31 | XMS_ITS | Clinical Summary ---
Author Organization [facility] Address [address] [place] [address] Care Team Providers Care Specialist Employee Labor Relations Name Role Phone Unknown Primary Care Provider [phone] Allergies No known active allergies Medications lisdexamfetamine [...] patient's age to complete this topic Insurance [facility] - PPO Care Teams Specialist Employee Labor Relations Relationship Specialty Start Date End Date Unknown Unknow Provider Address PCP - General 06/30/22
== END 2025-02-08 13:36 | disposition home or self-care (01) ==
LOC: HO.PMC 12:52
PROVIDERS: PCP Physician Assistant; Referring Provider Physician Assistant; Visit Provider Internal Medicine
DX: M43.16 Spondylolisthesis, lumbar region (principal)
CPT/HCPCS: 99204

== ENCOUNTER 2025-02-12 14:31 | Outpatient (RCR) | payer BC, SELFPAY ==
--- NOTE | 2025-01-19 13:29 | MHC.OT.OEV ---
[address] [phone] F: [phone] Occupational Therapy Evaluation Patient Name: Mesfin Brown Diagnosis: (L)Carpal Tunnel Syndrome Date of Onset: Date of Surgery: Attending Provider: Rishi Galan Prescribed Treatment: MD Follow Up Appointment: History of Current Condition: Patient is a 34 y/o (L)handed male who was referred to skilled OT for pain of the wrist. He reports he was diagnosed when he was a teenager but did not seek out treatment for it. He states the pain is a tension that is constant but during activity it is an 8/10 pain. It radiates from the elbow to the thumb. He reports numbness/ throughout the day. 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 He has difficulty with fine motor tasks while he is at work. His leisure activities include playing musical instruments, hiking, and mountain biking. 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 (I)ADLs/IADLs plays musical instruments, mountain biking, hiking Living Situation, Family and/or Social Support: Lives alonen Current Level of Function and Occupation Self Care, Employment, Leisure: min (A)ADLs/IADLs Sleep: Sleep through the nights Driving: (I) Vision: Balance: Pain Assessment Pain Score: 8 Pain Scale Used: Numeric (0 - 10) Pain Location and Description: 8/10 after activity describes pain as constant tension Aggravating Factors: Alleviating Factors: N/A Skin and Soft Tissue Assessment Skin and Soft Tissue: Comments: Nerve assessment Ulnar Nerve: Median Nerve: Radial Nerve: Comments: Sensory Assessment Temperature: Light Touch: Proprioception: Vibration: Comments: [place] Wes Monofilament- Radial side WFL, unable to feel 2.83 (green) monofilament on the ulnar side due to old injury Edema Assessment Upper Extremity: Lower Extremity: Comments: Dexterity Assessment Dexterity: Comments: Special Tests Comments: Phalan's Test (+) AROM(PROM) Strength Cervical Cervical Flexion: Cervical Extension: Cervical Lateral Flexion: Cervical Rotation: Comments: Shoulder Flexion: Extension: Abduction: Internal Rotation: External Rotation: Comments: WFL Flexion: Extension: Abduction: Internal Rotation: External Rotation: Comments: Elbow Flexion: Extension: Pronation: Supination: Comments: WFL Flexion: Extension: Pronation: Supination: Comments: Wrist Flexion: 76 Extension: 55 Ulnar Deviation: 23 Radial Deviation: 27 Comments: Flexion: Extension: Ulnar Deviation: Radial Deviation: Comments: Thumb Thumb CMC Flexion: Thumb MCP Flexion: Thumb IP Flexion: Radial Abduction: Palmar Abduction: Cheraw (Kapandji 0-10): 10 Comments: WFL Digits Index MCP: PIP: DIP: Long MCP: PIP: DIP: Ring MCP: PIP: DIP: Small MCP: PIP: DIP: Comments: WFL Gross Grasp: (R)115lbs., (L)129lbs. Lateral Pinch: 23 Two-Point Pinch: 12 Three-Jaw Chidi: 17 Comments: Patient Education Primary Language: Office Professional Required: No Current Knowledge: Understands information with skills for self-management Teaching Method: Verbal Education Needs Identified on Evaluation: ADL's Disease Information Exercise Pain How did patient/family demonstrate learning? Patient demonstrates Patient verbalizes Barriers to Learning: None Readiness for Learning: Accepting Who was educated? Patient Comments: Plan of Care Assessment: Based on initial OT evaluation patient presents with impaired ROM, impaired strength, pain, decreased sensation and impaired performance during self care tasks. Quick DASH score= 22.7% indicating patient's perceived UE impairment during self care tasks. Provocative Test was (+) for CTS. Due to the documented impairments it is recommended that patient receive skilled OT intervention in order for patient to achieve his PLOF of (I) during self care tasks. Thank you for your referral. STG Duration: 2 weeks Short Term Goals: Patient will report 6/10 pain during self care tasks in (L)wrist Patient will be (I) with self massage techniques Patient will be (I) with wear schedule of orthosis Patient will increase wrist extension to 65* LTG Duration: 4 weeks Skilled Nursing Goals: Patient will report 1/10 pain in (L)wrist during activities Patient will be (I) with HEP Patient will decrease Quick DASH to 10% or less Patient will be able to play guitar with (I) indicating improved wrist ROM Frequency and Duration: The patient will be seen 2x a week for 4 weeks Treatment Plan: Therapeutic Exercise Therapeutic Activity Home Exercise Program Splinting Neuro Re-ed Patient Education Desensitization/Sensory Re-ed Edema Control ADL Training Ultrasound NMES Iontophoresis Paraffin Fluidotherapy MHP Cold Packs Joint Mobilization Soft Tissue Mobilization Kinesiotaping Other (see comments) Skilled OT eval and treat Electronically Signed By: Mariella Inman OTR/L, CLT Reviewed/agree with student documentation: Therapist: Please sign and return to therapist, Thank you for your referral.
== END 2025-05-31 12:24 | disposition home or self-care (01) ==
LOC: HO.OT 14:31
PROVIDERS: PCP Physician Assistant; Visit Provider Physician Assistant
DX: M79.642 Pain in left hand (principal)
CPT/HCPCS: 97110; 97140; 97165

== ENCOUNTER 2025-02-16 08:38 | Outpatient (REF) | payer BC, SELFPAY ==
--- NOTE | 2025-02-16 08:41 | EMG_ITS ---
Bilateral median and ulnar motor and sensory studies were performed bilateral radial sensory and median and lateral antecubital brachial sensory studies were performed. Paraspinal muscles were tested with a needle. Impression: Unremarkable study with no evidence of median or ulnar neuropathy or a proximal lesion MTDD
--- OUTSIDE RECORDS SUMMARY | 2025-02-16 08:50 | XMS_ITS | Clinical Summary ---
Author Organization [facility] Address [address] [place] [address] Care Team Providers Care Tire Fixer Name Role Phone Unknown Primary Care Provider [phone] Allergies No known active allergies Medications lisdexamfetamine [...] patient's age to complete this topic Insurance [facility] - PPO Care Teams Tire Fixer Relationship Specialty Start Date End Date Unknown Unknow Provider Address PCP - General 06/30/22
--- OUTSIDE RECORDS SUMMARY | 2025-02-16 08:50 | XMS_ITS | Clinical Summary ---
Author Organization [facility] Address [address] [place] [address] Care Team Providers Care Electroplater Name Role Phone Unavailable Primary Care Provider [...]
== END 2025-02-16 08:39 | disposition home or self-care (01) ==
LOC: HO.NEURO 08:38
PROVIDERS: PCP Physician Assistant; Visit Provider Physician Assistant
DX: R20.2 Paresthesia of skin (principal)
CPT/HCPCS: 95886; 95913

== ENCOUNTER → 2025-02-16 08:41 | Outpatient (BNV) | payer BC, SELFPAY | PROVIDERS: PCP Physician Assistant; Visit Provider Psychiatry & Neurology Neurology | DX: R20.2 Paresthesia of skin (principal) | CPT/HCPCS: 95886; 95913 ==

== ENCOUNTER → 2025-02-20 18:09 | Outpatient (BNV) | payer BC, SELFPAY | PROVIDERS: PCP Physician Assistant; Visit Provider Radiology Diagnostic Radiology | DX: M54.50 Low back pain, unspecified (principal); M47.816 Spondylosis without myelopathy or radiculopathy, lumbar region; M99.63 Osseous and subluxation stenosis of intervertebral foramina of lumbar region | CPT/HCPCS: 72148 ==

== ENCOUNTER 2025-02-20 18:10 | Outpatient (REF) | payer BC, SELFPAY ==
--- NOTE | ~2025-02-20 | MR_ITS ---
EXAMINATION: MR LUMBAR SPINE WITHOUT CONTRAST CLINICAL INFORMATION: Low back pain radiating to the left lower extremity. Weakness and numbness, left lower extremity. COMPARISON: Correlated to x-ray dated January 18, 2025. TECHNIQUE: MRI of the lumbar spine was obtained using routine sequences without contrast. FINDINGS: Last rib-bearing vertebra labeled T12. No bone marrow STIR signal abnormality. Multilevel disc desiccation and marginal osteophyte formation from T11-12 to L5-S1, pronounced at L1 to and L2-3 levels. Grade 1 anterolisthesis at L5-S1 secondary to spondylolysis pars interarticularis. Hyperintense T1 and T2 bone marrow signal in the posterior elements of L5. Conus medullaris ends at superior endplate of L1 with normal signal. T12-L1: There is a left subarticular herniated disc resulting in ventral indentation to the thecal sac without compression upon neural elements. L1-2: There is a left subarticular herniated disc resulting in ventral deformity of the thecal sac and abutting the neural elements without compression. Left neuroforamina narrowing. L2-3: Broad-based disc bulging. Facet joint hypertrophy. Reduced AP diameter of the thecal sac. No compression upon neural elements. L3-4: Broad-based disc bulging. Facet joint hypertrophy. Facet effusion. Reduced AP diameter of the thecal sac and neuroforamina. L4-5: Broad-based disc bulging. Facet joint and ligamentum flavum hypertrophy. Reduced AP diameter of the thecal sac and neuroforamina likely encroaching the neural elements. L5-S1: Grade 1 anterolisthesis resulting in bilateral neuroforamina stenosis compressing the L5 nerve roots. There is prominent epidural fat reducing the AP diameter of the thecal sac. No prevertebral compartment hematoma, mass or fluid collections. MR/MR lumbar spine wo con IMPRESSION: Grade 1 anterolisthesis secondary to spondylolysis pars interarticularis at L5-S1 causing bilateral neuroforamina stenosis and compressing the L5 nerve roots. Epidural lipomatosis L5-S1. Left subarticular herniated disc at T12-L1 and L1-2 pronounced at L1 to abutting the neural limits. Multilevel spondylosis from L2-3 to L4-5. Electronically signed by: Juan De Guzman MD 02/22/2025 07:59 AM EDT
--- OUTSIDE RECORDS SUMMARY | 2025-02-20 18:12 | XMS_ITS | Clinical Summary ---
Author Organization [facility] Address [address] [place] [address] Care Team Providers Care Rubber Splicer Name Role Phone Unavailable Primary Care Provider [...]
== END 2025-02-20 18:11 | disposition home or self-care (01) ==
LOC: HO.MRI 18:10
PROVIDERS: PCP Physician Assistant; Visit Provider Physician Assistant
DX: M54.16 Radiculopathy, lumbar region (principal)
CPT/HCPCS: 72148

== ENCOUNTER 2025-03-08 12:48 | Outpatient (AMB) | payer BC, SELFPAY ==
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
--- OUTSIDE RECORDS SUMMARY | 2025-03-08 13:55 | XMS_ITS | Clinical Summary ---
Author Organization [facility] Address [address] [place] [address] Care Team Providers Care Service Specialist Name Role Phone Unknown Primary Care Provider [phone] Allergies No known active allergies Medications lisdexamfetamine [...] of 3 - 19+ 3-dose series) 2008 HPV Vaccines (1 - 3-dose SCD M series) 2016 COVID-19 Vaccine (2023-2 5 season) 2024 05/03/2022 Influenza Vaccine 02/12/2025 Pneumococcal Vaccine: Pediat ellie (0-5 Years) and At-Risk Patients (6 to 49 Years) Aged Out No longer eligible b ased on patient's age to complete this topic Insurance [facility] - PPO Care Teams Service Specialist Relationship Specialty Start Date End Date Unknown Unknow Provider Address PCP - General 06/30/22
--- OUTSIDE RECORDS SUMMARY | 2025-03-08 13:55 | XMS_ITS | Clinical Summary ---
Author Organization [facility] Address [address] [place] [address] Care Team Providers Care Consumer Education Specialist Name Role Phone Unavailable Primary Care Provider [...]
== END 2025-03-08 13:25 | disposition home or self-care (01) ==
LOC: HO.HNS 12:49
PROVIDERS: PCP Physician Assistant; Referring Provider Physician Assistant; Visit Provider Physician Assistant
DX: M43.10 Spondylolisthesis, site unspecified (principal)
CPT/HCPCS: 99204

== ENCOUNTER 2025-03-08 12:48 | Outpatient (REF) | payer BC, SELFPAY ==
--- NOTE | ~2025-03-08 | XR_ITS ---
EXAMINATION: XR LUMBAR SPINE 4 OR MORE VIEWS HISTORY: M54.50 - Low back pain, unspecified COMPARISON: Comparison is made with the prior examination dated 01/18/2025. FINDINGS: AP, and neutral, flexion, and extension lateral views of the lumbar spine are submitted. Osseous mineralization is normal. Five nonrib-bearing lumbar vertebral bodies are identified, maintaining normal height without evidence of fracture. Again seen is grade I spondylolisthesis of L5 on S1. This measures approximately 7-8 mm in the neutral, flexion, and extension positions.. There is mild degenerative disc disease involving the lower thoracic spine with disc space narrowing and osteophyte formation. There is spondylolysis of L5. The visualized paraspinal soft tissues are unremarkable. XR/XR lumbar spine 4V min IMPRESSION: Grade I spondylolisthesis of L5 on S1 without significant change with flexion or extension. Electronically signed by: Nick Barraza MD 03/08/2025 01:45 PM EDT
== END 2025-03-08 12:49 | disposition home or self-care (01) ==
LOC: HO.HOSX 12:48
PROVIDERS: PCP Physician Assistant; Referring Provider Physician Assistant; Visit Provider Physician Assistant
DX: M43.16 Spondylolisthesis, lumbar region (principal); M51.379 Other intervertebral disc degeneration, lumbosacral region without mention of lumbar back pain or lower extremity pain; M54.50 Low back pain, unspecified
CPT/HCPCS: 72110

== ENCOUNTER → 2025-03-08 13:33 | Outpatient (BNV) | payer BC, SELFPAY | PROVIDERS: PCP Physician Assistant; Referring Provider Physician Assistant; Visit Provider Radiology Diagnostic Radiology | DX: M54.50 Low back pain, unspecified (principal) | CPT/HCPCS: 72110 ==

== ENCOUNTER 2025-03-22 09:48 | Outpatient (AMB) | payer BC, SELFPAY ==
--- NOTE | 2025-03-22 09:53 | MHC.OFFVIS ---
Vital Signs 03/22/25 09:54 Height 5 ft 6 in Weight 204 lb BMI 32.9 BP 139/93 H Blood Pressure Location Lt brachial Position Sitting Respiration 16 Pulse 83 Pulse Source Pulse Oximeter Pulse Oximetry (%) 96 Oxygen Delivery Method Room Air Intake Visit Reasons: Follow-up after MRI Educational Program Assistant Required: No Allergies hazelnut Allergy (Unknown, Verified 03/22/25 09:55) throat itchy Medication List - Last Reconciled 03/22/25 by Geovanna Brown LPN albuterol sulfate 90 mcg/actuation 1 inh inhalation QID PRN 30 days aripiprazole 2 mg PO BEDTIME baclofen 10 mg PO DAILY PRN 30 days cholecalciferol (vitamin D3) 50 mcg PO DAILY 90 days clonazepam 1 mg PO DAILY PRN dextroamphetamine-amphetamine 15 mg ER 1 cap PO BID escitalopram oxalate (Lexapro) 5 mg PO DAILY fluticasone propionate 110 mcg/actuation inhalation prazosin 2 mg PO BID trazodone mg PO BEDTIME PRN HPI HPI Follow-up after MRI: Details: History of Present Illness The patient is a 34-year-old male presenting with a follow-up after his lumbar spine MRI and dynamic lumbar spine x-rays. 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 The spondylolisthesis measures approximately 7 mm in flexion and 8 to 9 mm in extension, indicating instability. Degenerative disc disease is present at L5-S1, contributing to his symptoms. The patient was seen in the spine clinic for consideration of an L5-S1 fusion, but due to his age, conservative management was recommended. 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 The patient experiences significant pain radiating down his legs, attributed to nerve compression at L5-S1. Pain Description - Onset: Chronic pain associated with lumbar spine issues - Quality: Radiating pain down the legs - Exacerbating factors: Bending, lifting, and twisting motions - Relieving factors: Conservative management and potential injection therapy Physical Exam - Musculoskeletal: Positive straight leg raise test bilaterally Results - Imaging: Lumbar spine MRI and dynamic lumbar spine x-rays showing bilateral L5 pars defects, grade one spondylolisthesis, and degenerative disc disease at L5-S1 Pain Management - Affect: Pain impacts daily activities and work as a electric brain wave equipment mechanic - Analgesia: Conservative management recommended, with potential for injection therapy - Activities of Daily Living: Pain affects ability to perform tasks involving bending and lifting [facility] Medical History Asthma MDD (major depressive disorder) JAN (generalized anxiety disorder) ADD (attention deficit disorder) Surgical History No pertinent past surgical history Family History Father Medical history unknown Mother Depression with anxiety Chronic mental illness Mental health disorder Family/Other Diabetes Social History (Updated 01/12/25 @ 08:16 by Rishi Galan PA-C) Housing: House Alcohol intake: current Alcohol intake frequency: 3 or more drinks per day Alcohol type: beer Patient Tobacco Use Status: Never used Tobacco e-Cigarette/Vaping Use: Never Used Second Hand Smoke Exposure: No service: No Current occupational status: employed 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 - [employer] Current occupational exposures/hazards: No Cognitive needs: No Hearing needs: No Vision needs: Yes (glasses) Physical Exam Vital Signs: Last Vital Signs Pulse 83 03/22/25 09:54 Resp 16 03/22/25 09:54 BP 139/93 H 03/22/25 09:54 Pulse Ox 96 03/22/25 09:54 Oxygen Delivery Method Room Air 03/22/25 09:54 BMI result Body Mass Index 32.9 Assessment & Plan Assessment & Plan (1) Pars defect with spondylolisthesis: Code(s): M43.10 - Spondylolisthesis, site unspecified Category: Medical (2) Lumbar radiculopathy: Code(s): M54.16 - Radiculopathy, lumbar region Category: Medical Plan Plan Patient was informed and verbally consented to the use of an ambient scribe for clinic note documentation during this visit. 1. Bilateral L5 Pars Defects With Instability At L5-S1 and lumbar radiculopathy - Conservative management recommended due to patient's age. - Plan for L5-S1 intralaminar injection to manage pain. 2. Grade One Spondylolisthesis At L5-S1 - Conservative management with core strengthening exercises advised. - Avoidance of activities that exacerbate symptoms, such as heavy lifting. 3. Degenerative Disc Disease At L5-S1 - Conservative management with potential for future surgical intervention if symptoms worsen. - Core strengthening, swimming and ergonomic adjustments at work recommended. Discussion Notes I discussed with the patient the findings of his lumbar spine MRI and x-rays, which revealed bilateral L5 pars defects, grade one spondylolisthesis, and degenerative disc disease at L5-S1. Conservative management was recommended due to his age, with a plan for an L5-S1 intralaminar injection to manage pain. We discussed the importance of core strengthening exercises and avoiding activities that exacerbate symptoms, such as heavy lifting. Patient Instructions - Engage in core strengthening exercises to support the spine. - Avoid heavy lifting and bending to prevent exacerbation of symptoms. - Schedule and attend the L5-S1 intralaminar injection appointment. Coding Level of Care Code Est Pt Level 4 (21377) Diagnoses Pars defect with spondylolisthesis M43.10 Lumbar radiculopathy M54.16
[2025-03-22 09:54] VITALS: BP 139/93; PULSE 83; RESP 16; O2SAT 96; BMI 32.9
--- OUTSIDE RECORDS SUMMARY | 2025-03-22 11:23 | XMS_ITS | Clinical Summary ---
Author Organization [facility] Address [address] [place] [address] Care Team Providers Care Digital Photographer Name Role Phone Unknown Primary Care Provider [phone] Allergies No known active allergies Medications lisdexamfetamine [...] patient's age to complete this topic Insurance [facility] - PPO Care Teams Digital Photographer Relationship Specialty Start Date End Date Unknown Unknow Provider Address PCP - General 06/30/22
--- OUTSIDE RECORDS SUMMARY | 2025-03-22 11:23 | XMS_ITS | Clinical Summary ---
Author Organization [facility] Address [address] [place] [address] Care Team Providers Care Ampoule Filler Name Role Phone Unavailable Primary Care Provider [...] of 3 - 19+ 3-dose series) 2008 Depression Screening 07/15/2024 COVID-19 Vaccine ( - 2023-2 5 season) 2025 Influenza Vaccine (#1) 2025 HIB Vaccines Aged [...]
== END 2025-03-22 10:27 | disposition home or self-care (01) ==
LOC: HO.PMC 09:49
PROVIDERS: PCP Physician Assistant; Visit Provider Internal Medicine
DX: M43.10 Spondylolisthesis, site unspecified (principal); M54.16 Radiculopathy, lumbar region
CPT/HCPCS: 99214

== ENCOUNTER 2025-05-06 06:19 | Outpatient (REF) | payer BC, SELFPAY ==
--- NOTE | ~2025-05-06 | FL_ITS ---
EXAMINATION: FL GUIDANCE ONLY HISTORY: M54.16 - Radiculopathy, lumbar region COMPARISON: Correlation is made with plain films of the lumbar spine dated 03/08/2025. TECHNIQUE: Fluoroscopy time: 0.3 minutes. Cumulative Dose: 6.20 mGy. DAP: 53.40 uGym2 Images: 2. FINDINGS: Fluoroscopic spot films of the lumbosacral junction demonstrate a needle in place at the L5-S1 level. FL/FL guidance in treatment room IMPRESSION: Fluoroscopy during procedure. Please see procedure report for additional information. Electronically signed by: Nick Barraza MD 05/06/2025 03:10 PM EDT
--- OUTSIDE RECORDS SUMMARY | 2025-05-06 06:20 | XMS_ITS | Clinical Summary ---
Author Organization [facility] Address [address] [place] [address] Care Team Providers Care Conveyor Line Bakery Worker Name Role Phone Unknown Primary Care Provider [phone] Allergies No known active allergies Medications lisdexamfetamine [...] of 3 - 19+ 3-dose series) 2008 Influenza Vaccine 02/12/2025 COVID-19 Vaccine (2 - 2024-2 6 season) 2025 05/03/2022 HPV Vaccines (No Doses Required) Completed Pneumococcal Vaccine: Pediat ellie (0-5 Years) and At-Risk Patients (6 to 49 Years) Aged Out No longer eligible b ased on patient's age to complete this topic Insurance [facility] - PPO Care Teams Conveyor Line Bakery Worker Relationship Specialty Start Date End Date Unknown Unknow Provider Address PCP - General 06/30/22
== END 2025-05-06 06:20 | disposition home or self-care (01) ==
LOC: CF 06:19
PROVIDERS: Visit Provider Internal Medicine
DX: M54.16 Radiculopathy, lumbar region (principal)
CPT/HCPCS: 62321; J2003; J3301; Q9967

== ENCOUNTER 2025-05-06 10:58 | Outpatient (AMB) | payer BC, SELFPAY ==
--- NOTE | 2025-05-06 11:07 | A.OFFVIS_ITS ---
Vital Signs 05/06/25 11:08 05/06/25 12:09 BP 128/82 142/98 H Blood Pressure Location Lt brachial Lt brachial Position Sitting Sitting Respiration 16 16 Pulse 94 87 Pulse Source Pulse Oximeter Pulse Oximeter Pulse Oximetry (%) 97 97 Oxygen Delivery Method Room Air Room Air Intake Visit Reasons: L5-S1 Parasagittal Interlaminar SUSAN Salesperson Sheet Music Required: No Allergies hazelnut Allergy (Unknown, Verified 05/06/25 11:08) throat itchy Medication List - Last Reconciled 05/06/25 by Geovanna Brown LPN albuterol sulfate 90 mcg/actuation 1 inh inhalation QID PRN 30 days aripiprazole 2 mg PO BEDTIME baclofen 10 mg PO DAILY PRN 30 days cholecalciferol (vitamin D3) 50 mcg PO DAILY 90 days clonazepam 1 mg PO DAILY PRN dextroamphetamine-amphetamine 15 mg ER 1 cap PO BID escitalopram oxalate (Lexapro) 5 mg PO DAILY fluticasone propionate 110 mcg/actuation inhalation prazosin 2 mg PO BID trazodone mg PO BEDTIME PRN HPI HPI L5-S1 Parasagittal Interlaminar SUSAN: Details: Patient presents for scheduled procedure. Denies any recent cough, cold, infection, fever or other significant changes in medical history since last office visit. [facility] Medical History Asthma MDD (major depressive disorder) JAN (generalized anxiety disorder) ADD (attention deficit disorder) Surgical History No pertinent past surgical history Family History Father Medical history unknown Mother Depression with anxiety Chronic mental illness Mental health disorder Family/Other Diabetes Social History (Updated 01/12/25 @ 08:16 by Rishi Galan PA-C) Housing: House Alcohol intake: current Alcohol intake frequency: 3 or more drinks per day Alcohol type: beer Patient Tobacco Use Status: Never used Tobacco e-Cigarette/Vaping Use: Never Used Second Hand Smoke Exposure: No service: No Current occupational status: employed 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 The patient was placed in the prone position. The lumbosacral area was widely prepped with chloraprep and draped in sterile fashion. Fluoroscopic guidance was used to identify the desired interlaminar space and for needle placement. Subcutaneous 0.5% lidocaine was used to anesthetize the skin overlying the target. A 20-gauge Barrientos needle was advanced to the epidural space using loss of resistance to saline technique under fluoroscopic AP and contralateral oblique views. There was no evidence of heme or CSF and no paresthesias were elicited with needle placement. Confirmation of epidural needle placement was performed with 1cc of omnipaque 180. Next 3 ml 0.5% lidocaine mixed with 80 mg triamcinilone was administered epidurally with no pain elicited on injection. The needle tract tubing was then cleared with 1 ml of 0.5% lidocaine. The needle was removed, skin cleansed and a sterile bandage was applied. The patient tolerated the procedure well and no complications were encountered. Following the procedure the patient's vital signs were stable. The patient was discharged home in good condition with post-procedural instructions. Time Out: Immediately prior to the procedure, the following was verbally confirmed that there is a signed consent form and that the correct patient, planned procedure, site and side are consistent with documentation and that necessary equipment and/or blood products are available prior to the start of the case. Complications: none EBL: <2 cc Coding 56254 - Caudal/Lumbar Epidural/Interlaminar with fluoroscopy Procedure code (CPT) selection complete Assessment & Plan Assessment & Plan (1) Lumbar radiculopathy: Code(s): M54.16 - Radiculopathy, lumbar region Category: Medical Plan Patient is status post L5-S1 interlaminar SUSAN. Patient tolerated procedure well and was discharged home in stable condition with discharge instructions. All questions were answered. We will follow-up via telephone or in clinic to assess response to therapy. A follow-up appointment was made during today's visit. Orders: Orders FL guidance in treatment room Today Aneta Alex APRN, MANAGEMENT INFORMATION SYSTEMS DIRECTOR M54.16 - Radiculopathy, lumbar region AMB Joint Injection/Aspiration Today Jona Quiroz MD M54.16 - Radiculopathy, lumbar region Coding Level of Care Code Procedure Only Diagnoses Lumbar radiculopathy M54.16 CPT Codes Coding - Joint 11: 67188 - Caudal/Lumbar Epidural/Interlaminar with fluoroscopy ([id number])
[2025-05-06 11:08] VITALS: BP 128/82; PULSE 94; RESP 16; O2SAT 97
[2025-05-06 12:09] VITALS: BP 142/98; PULSE 87; RESP 16; O2SAT 97
== END 2025-05-06 12:10 | disposition home or self-care (01) ==
LOC: HO.PMCPRC 10:58
PROVIDERS: PCP Physician Assistant; Visit Provider Internal Medicine
DX: M54.16 Radiculopathy, lumbar region (principal)
CPT/HCPCS: 62321

== ENCOUNTER 2025-05-17 08:25 | Outpatient (AMB) | payer BC, SELFPAY ==
[2025-05-17 08:33] VITALS: BP 140/110; PULSE 88; TEMP 36.3; O2SAT 97; BMI 33.1
--- NOTE | 2025-05-17 08:33 | MHC.PC.OV ---
Vital Signs 05/17/25 08:33 Height 5 ft 6 in Weight 205 lb BMI 33.1 BP 140/110 H Blood Pressure Location Lt brachial Position Sitting Pulse 88 Pulse Source Pulse Oximeter Temp 97.3 F Temp Source Temporal Artery Scan Pulse Oximetry (%) 97 Oxygen Delivery Method Room Air Intake Visit Reasons: f/u HLD/ elevated blood pressure readings Intake Note: Drunk an energy drink this morning. Allergies hazelnut Allergy (Unknown, Verified 05/17/25 08:44) throat itchy Medication List - Last Reconciled 05/17/25 by Rishi Galan PA-C albuterol sulfate 90 mcg/actuation 1 inh inhalation QID PRN 30 days aripiprazole 2 mg PO BEDTIME baclofen 10 mg PO DAILY PRN 30 days cholecalciferol (vitamin D3) 50 mcg PO DAILY 90 days clonazepam 1 mg PO DAILY PRN dextroamphetamine-amphetamine 15 mg ER 1 cap PO BID escitalopram oxalate (Lexapro) 5 mg PO DAILY fluticasone propionate 110 mcg/actuation inhalation prazosin 2 mg PO BID trazodone mg PO BEDTIME PRN Tobacco use date assessed: 05/17/25 Dental Screening Dental Screen Date: 05/17/25 Did you have a dental visit in the last 12 months?: Yes Did you have a dental problem in the last 6 months where you did not have access to dental care?: No Was dental information given to patient?: Patient has dentist HPI f/u HLD/ elevated blood pressure readings HPI Details Patient is a 34 -year-old male here today for a follow-up visit Patient has a past medical history significant for major depressive disorder, anxiety, ADD, obesity, Chronic lumbar spine pain, hyperlipidemia and hypertension Concern--> Lumbar disc disease: Has followed up with both pain management and neuro spine and has gotten an injection in his lower back which has helped reducing his pain. He will work on core strengthening. Hypertension: The patient reports a history elevated blood pressure readings, with recent home blood pressure readings reaching 155/121 mmHg, indicating stage 2 hypertension. He has been monitoring his blood pressure at home and has noted elevated readings, particularly in the mornings. He acknowledges a need to reduce caffeine and alcohol intake to manage his blood pressure better. .. Alcohol use disorder: The patient admits to consuming at least three beers daily, acknowledging that this is more than he should be drinking. He does not consume hard liquor and denies the use of recreational drugs. Asthma: REport his asthma has been stable. Has rarely had to use his albuterol inhaler. .. Hypertriglyceridemia: Most recent lipid panel showing elevated triglycerides above 300. Has made changes in his diet and has lost weight since last office visit. Will recheck his fasting lipid panel. . MDD: feels pretty stable on currently meds. Does admit to times more depression and some isolation. Has Wellbutrin has been changed to Lexapro recently and does report feeling a bit more tired. Continues to follow a therapist and a psychiatrist Laboratory Tests 04/01/24 07/13/24 01/18/25 10:16 10:41 08:13 Creatinine 1.21 AST 36 ALT 59 H 41 H Triglycerides 361 H 253 H Cholesterol 207 H LDL Cholesterol, C alc 91 128 H Total Testosterone 317 PFSH Medical History Asthma MDD (major depressive disorder) JAN (generalized anxiety disorder) ADD (attention deficit disorder) Surgical History No pertinent past surgical history Family History Father Medical history unknown Mother Depression with anxiety Chronic mental illness Mental health disorder Family/Other Diabetes Social History Housing: House Alcohol intake: current Alcohol intake frequency: 3 or more drinks per day Alcohol type: beer Patient Tobacco Use Status: Never used Tobacco Tobacco use type: Cigarette e-Cigarette/Vaping Use: Never Used Second Hand Smoke Exposure: No service: No Current occupational status: employed Current occupation: [employer] - [employer] Current occupational exposures/hazards: No Cognitive needs: No Hearing needs: No Vision needs: Yes (glasses) Questionnaire PHQ-9 Over the last 2 weeks, how often have you been bothered by any of the following problems? 1. Little interest or pleasure in doing things: several days 2. Feeling down, depressed, or hopeless: several days 3. Trouble falling or staying asleep, or sleeping too much: several days 4. Feeling tired or having little energy: several days 5. Poor appetite or overeating: not at all 6. Feeling bad about yourself - or that you are a failure or have let yourself or your family down: not at all 7. Trouble concentrating on things, such as reading the newspaper or watching television: several days 8. Moving or speaking so slowly that other people could have noticed. Or the opposite - being so fidgety or restless that you have been moving around a lot more than usual: not at all 9. Thoughts that you would be better off or of hurting yourself in some way: not at all Total score: 5 Depression Screening Interpretation: Positive Depression Screening Follow-up: Existing condition and In treatment Depression Screening Done: Yes 54973 - PHQ-9 Billing: Yes Source: Developed by Drs. Nick Ramirez, Ema Still, Justice Vidal and colleagues, with an educational aubrey from [email or web address]. Thrive Questionnaire Date Thrive assessed: 05/17/25 I am a: Patient What is your living situation today?: I have a steady place to live Within the past 12 months, did the food you bought not last and you didn't have the money to get more?: I choose not to answer this question Within the past 12 months, did you worry whether your food would run out before you got money to buy more?: I choose not to answer this question Do you have trouble paying for medicines?: No Do you have trouble getting transportation to medical appointments?: No Do you have trouble paying your heating and electricity bill?: No Do you have trouble taking care of your child, family member or friend?: No Do you have trouble with day-to-day activities such as bathing, preparing meals, shopping, managing finances, etc.?: I choose not to answer this question Are you currently unemployed and looking for a job?: No Are you interested in more education?: I choose not to answer this question Please select the resources that you would like help with: None Currently or been in a relationship where the following occur: I choose not to answer THRIVE Score: 0 AUDIT C Alcohol Use Questionnaire (AUDIT-C) 1. How often do you have a drink containing alcohol?: 4 or more times a week 2. How many drinks containing alcohol do you have on a typical day when you are drinking?: 3 or 4 3. How often do you have six or more drinks on one occasion?: Monthly Total Score: 7 JAN-7 AMB Questionnaire JAN-7 Date JAN - 7 assessed: 05/17/25 Feeling nervous, anxious, or on edge: 3 = Nearly every day Not being able to stop or control worryin = More than half the days Worrying too much about different things: 2 = More than half the days Trouble relaxin = More than half the days Being so restless that it is hard to sit still: 2 = More than half the days Becoming easily annoyed or irritable: 3 = Nearly every day Feeling afraid as if something awful might happen: 0 = Not at all Total JAN-7 score (0-4 normal; 5-9 mild; 10-14 moderate; 15-21 severe): 14 Source: Developed by Drs. Nick Ramirez, Ema Still, Justice Vidal and colleagues, with an educational aubrey from [email or web address]. JAN-7 Assessment Billing JAN-7 Assessment Tool: JAN-7 Assessment 80647 Review of Systems Const Denies headache(s) Eyes Denies loss of vision ENT Denies vertigo, Denies dizziness, Denies headache(s) and Denies sore throat Card Denies chest pain, Denies leg edema and Denies lightheadedness Resp Denies cough, Denies hemoptysis and Denies wheezing GI Denies abdominal pain, Denies melena, Denies constipation, Denies diarrhea and Denies vomiting Denies dysuria, Denies urinary frequency and Denies urinary urgency Musc Denies arthralgias, Denies joint swelling, Denies numbness and Denies tingling Neuro Denies Abnormal speech present, Denies behavioral changes, Denies vertigo, Denies dizziness, Denies headache(s), Denies loss of vision, Denies memory loss, Denies numbness and Denies tingling Psych Denies anxiety, Denies behavioral changes, Denies depression, Denies memory loss and Denies panic attacks Manjit/Lymph Denies easy bleeding and Denies easy bruising Aller/Immun Denies wheezing Physical exam (Primary Care) Vital Signs: Last Vital Signs Temp 97.3 F 05/17/25 08:33 Pulse 88 05/17/25 08:33 BP 140/110 H 05/17/25 08:33 Pulse Ox 97 05/17/25 08:33 Oxygen Delivery Method Room Air 05/17/25 08:33 BMI result Body Mass Index 33.1 Tobacco/Smoking Status: Tobacco use Status Tobacco use date assessed 05/17/25 05/17/25 08:35 Patient Tobacco Use Status Never used Tobacco 05/17/25 08:35 Tobacco use type Cigarette 05/17/25 08:39 e-Cigarette/Vaping Use Never Used 05/17/25 08:35 PHQ-9: PHQ-9 Score PHQ-9: Total score 5 05/17/25 08:46 Depression Screening Interpretation: Positive Depression Screening Follow-up: Existing condition and In treatment Thrive Assessment: Date of Thrive Assessment Date Thrive assessed 05/17/25 05/17/25 08:35 Currently or been in a relationship where the following occur: I choose not to answer Const General: healthy appearing, no acute distress, alert and awake Nutritional Appearance: well nourished Orientation/consciousness: oriented to person, oriented to place and oriented to time HENMT Ears: TM's normal bilaterally General nose exam: Normal nasal mucous membranes and turbinates present Eyes Conjunctivae: conjunctivae normal Sclerae: sclerae normal Pupils: Equal, round and reactive pupils present Neck Neck: Yes no lymphadenopathy and Yes no JVD Thyroid: Thyroid normal Carotids: no bruits Resp Effort & Inspection: normal respiratory effort and not tachypneic Auscultation: no crackles, no rales, no rhonchi and no wheezes Cardio Rate: regular rate Rhythm: regular rhythm Heart sounds: no murmurs and normal S1 and S2 GI Palpation (GI): Soft to palpation, nontender, no hepatomegaly and no splenomegaly Auscultation: normal bowel sounds Skin General skin exam: no rashes or lesions noted and dry skin Neuro General: oriented to person, oriented to place and oriented to time Cranial nerves: Yes Equal, round and reactive pupils present Speech: No Abnormal speech present Gait exam (Neuro): Normal gait present Motor exam (neuro): no tremor noted Extrem Right upper extremity: full ROM Left upper extremity: full ROM Right lower extremity: full ROM; no edema Left lower extremity: full ROM; no edema Psych Mental Status: mental status grossly normal Speech and movement: Normal speech and movement present Affect: normal affect Attitude: cooperative Thought process: Normal thought process present Office Procedures Flu Questionnaire Does the patient have a severe egg allergy?: No Does the patient have severe life threatening allergies?: No Does the patient have a fever or illness today?: No Has the patient ever had Guillain-[place] Syndrome?: No Has the patient ever had any past reaction to a flu shot?: No Immunizations Fluarix [id number] (PF) 45 mcg (15 mcg x 3)/0.5 mL IM syringe Performing Provider: Rishi Galan PA-C [facility] Administered by: Fannie Cordova LPN on 05/17/25 09:09 Dose Route Admin Location Dispensed Lot Number Expiration Date NDC [employer] Supervisor 0.5 mL IM Left Deltoid 0.5 mL [id number] 01/11/26 [id number] Objective Logistics VIS Given Date VIS Provided VIS Publication Date 05/17/25 Single Vaccine 24 Eligibility Eligibility Date Funding Source Not [facility] Eligible 05/17/25 Private Coding Level of Care Code Est Pt Level 4 (08406) Diagnoses Primary hypertension I10 Hypertension type: primary hypertension Mixed hyperlipidemia E78.2 Hyperlipidemia type: mixed hyperlipidemia Lumbar radiculopathy M54.16 Fatigue, unspecified type R53.83 Fatigue type: unspecified Additional Codes JAN-7 Assessment Billing - JAN-7 Assessment Tool: JAN-7 Assessment 24104 ([id number]) PHQ-9 - 59323 - PHQ-9 Billing: Yes ([id number]) Assessment & Plan Assessment & Plan (1) HTN (hypertension): Code(s): I10 - Essential (primary) hypertension Category: Medical Qualifiers: Hypertension type: primary hypertension Qualified Code(s): I10 - Essential (primary) hypertension Plan: Blood pressure remains elevated , he is now interested in starting blood pressure medication. Will start lisinopril 5 mg and advised to monitor blood pressure with goal blood pressure to be below 130/80. (2) HLD (hyperlipidemia): Code(s): E78.5 - Hyperlipidemia, unspecified Category: Medical Qualifiers: Hyperlipidemia type: mixed hyperlipidemia Qualified Code(s): E78.2 - Mixed hyperlipidemia Plan: Patient's lipid panel remains elevated. We did discuss perhaps starting cholesterol lowering medication though at this time will like to work on lifestyle and dietary modification. Goal LDL is to be below 160, goal total cholesterol to be below 200 (3) Lumbar radiculopathy: Code(s): M54.16 - Radiculopathy, lumbar region Category: Medical Plan: Patient was found to have lumbar disc disease a young age. Has followed up with pain management and did undergo an injection which did help reduce his pain quite a bit.. Will continue working on core strengthening. (4) Fatigue: Code(s): R53.83 - Other fatigue Category: Medical Qualifiers: Fatigue type: unspecified Qualified Code(s): R53.83 - Other fatigue Plan: Patient does seem to have some chronic fatigue which is likely related to his multiple mental health medications side effects. We did discuss perhaps being evaluated for obstructive sleep apnea and he is considering. Orders: Orders Influenza [id number] Immunization Today Z23 - Encounter for immunization Vitamin D 25-OH Total Today R53.83 - Other fatigue Medications: New lisinopril 5 mg PO DAILY 30 tabs 2RF 30 days I10 - Essential (primary) hypertension
--- OUTSIDE RECORDS SUMMARY | 2025-05-17 08:46 | XMS_ITS | Clinical Summary ---
Author Organization [facility] it[facility] Address [address] [place] [address] Care Team Providers Care Gang Investigator Name Role Phone Unavailable Primary Care Provider [...] (1 - 3-dose SCD M series) 2016 Depression Screening 07/15/2024 COVID-19 Vaccine (1 - 2023-2 5 season) 2025 Influenza Vaccine (#1) 2025 RSV Immunization Adult Patie nts (1 - 1-dose 75+ series) 2064 HIB Vaccines Aged Out No longer eligi [...]
--- OUTSIDE RECORDS SUMMARY | 2025-05-17 08:46 | XMS_ITS | Clinical Summary ---
Author Organization [facility] Address [address] [place] [address] Care Team Providers Care Piercing Artist Name Role Phone Unknown Primary Care Provider [phone] Allergies No known active allergies Medications lisdexamfetamine [...] patient's age to complete this topic Insurance [facility] - PPO Care Teams Piercing Artist Relationship Specialty Start Date End Date Unknown Unknow Provider Address PCP - General 06/30/22
== END 2025-05-17 09:11 | disposition home or self-care (01) ==
LOC: HO.HMCH 08:26
PROVIDERS: PCP Physician Assistant; Visit Provider Physician Assistant
DX: I10 Essential (primary) hypertension (principal); E78.2 Mixed hyperlipidemia; M54.16 Radiculopathy, lumbar region; R53.83 Other fatigue; Z23 Encounter for immunization

== ENCOUNTER → 2025-05-17 08:25 | Outpatient (BNVA) | payer BC, SELFPAY | PROVIDERS: PCP Physician Assistant; Visit Provider Physician Assistant | DX: I10 Essential (primary) hypertension (principal); R53.83 Other fatigue; J45.909 Unspecified asthma, uncomplicated; E78.1 Pure hyperglyceridemia; F32.A Depression, unspecified; E78.2 Mixed hyperlipidemia; M54.16 Radiculopathy, lumbar region; Z23 Encounter for immunization; Z79.51 Long term (current) use of inhaled steroids | CPT/HCPCS: 90471; 90656; 96127 ==

== ENCOUNTER 2025-06-26 07:08 | Outpatient (REF) | payer BC, SELFPAY ==
--- OUTSIDE RECORDS SUMMARY | 2025-06-26 07:11 | XMS_ITS | Clinical Summary ---
Author Organization [facility] Address [address] [place] [address] Care Team Providers Care Speech Assistant Name Role Phone Unknown Primary Care Provider [phone] Allergies No known active allergies Medications lisdexamfetamine [...] patient's age to complete this topic Insurance [facility] - PPO Care Teams Speech Assistant Relationship Specialty Start Date End Date Unknown Unknow Provider Address PCP - General 06/30/22
--- OUTSIDE RECORDS SUMMARY | 2025-06-26 07:11 | XMS_ITS | Clinical Summary ---
Author Organization [facility] Address [address] [place] [address] Care Team Providers Care Deputy Chief Counsel Name Role Phone Unavailable Primary Care Provider [...] Depression Screening 07/15/2024 COVID-19 Vaccine (1 - 2024-2 6 season) 2025 Influenza Vaccine (#1) 2025 RSV [...]
[2025-06-26 08:45] LABS: Hematocrit 45.8 % (42.0-52.0); Hemoglobin 16.0 g/dl (14.0-18.0); Mean Corpuscular HGB Conc 34.9 g/dl (31.0-36.0); Mean Corpuscular Hemoglobin 30.4 pg (27.0-33.0); Mean Corpuscular Volume 87.1 fL (80.0-98.0); NRBC Abs Auto 0.000 X10*3/uL (0.0-0.012); NRBC Pct Auto 0.0 /100WBC (0.0-0.2); Platelet Count 259 X10*3/uL (160-400); Red Blood Count 5.26 X10*6/uL (4.60-5.80); White Blood Count 7.0 X10*3/uL (4.8-10.8)
[2025-06-26 09:25] LABS: Albumin Level 4.9 g/dL (3.5-5.0); Alkaline Phosphatase 66 U/L (39-117); Anion Gap 11 (12-20); Aspartate Amino Transferase 35 U/L (5-37); Blood Urea Nitrogen 13 mg/dL (9-16); Calcium 9.4 mg/dL (8.4-10.2); Carbon Dioxide 27 mmol/L (22-29); Chloride 104 mmol/L (96-108); Cholesterol 231 mg/dL (<200); Estimated Glomerular Filt Rate > 60; HDL Cholesterol 51 mg/dL (>40); Potassium 4.2 mmol/L (3.3-5.1); Sodium 138 mmol/L (135-145); Total Protein 7.4 g/dL (6.5-8.0); Triglycerides 239 mg/dL (<150)
[2025-06-26 09:30] LABS: Syphilis Screen Nonreactive (Nonreactive)
[2025-06-26 09:31] LABS: HIV Num 1 0.07 S/CO (0.00-0.99)
[2025-06-26 09:40] LABS: Alanine Aminotransferase 51 U/L (0-40)
== END 2025-06-26 07:09 | disposition home or self-care (01) ==
LOC: HO.LAB 07:08
PROVIDERS: PCP Physician Assistant; Visit Provider Physician Assistant
DX: Z11.4 Encounter for screening for human immunodeficiency virus [HIV] (principal); Z13.1 Encounter for screening for diabetes mellitus; E78.9 Disorder of lipoprotein metabolism, unspecified; R53.83 Other fatigue; Z13.21 Encounter for screening for nutritional disorder
CPT/HCPCS: 80053; 80061; 82306; 85027; 86780; 87389

== ENCOUNTER 2025-06-26 08:02 | Emergency (ER) | payer BC, SELFPAY ==
[2025-06-26 08:09] VITALS: BP 123/91; PULSE 79; RESP 16; TEMP 36.5; O2SAT 98; BMI 32.5
--- NOTE | 2025-06-26 08:11 | ECG_ITS ---
Test Reason : weakness Blood Pressure : */* mmHG Vent. Rate : 80 BPM Atrial Rate : 80 BPM P-R Int : 172 ms QRS Dur : 120 ms QT Int : 388 ms P-R-T Axes : 53 61 21 degrees QTcB Int : 447 ms Normal sinus rhythm Right bundle branch block Borderline ECG When compared with ECG of 03-Sep-2023 12:38, No significant change was found Referred By: Generic ED Physician Electronically Signed By: JOSE BECKFORD MD
[2025-06-26 08:22] LABS: Glucose, Whole Blood 143 mg/dL (60-115)
--- NOTE | 2025-06-26 08:57 | ED_ITS ---
HPI - General Adult General Chief complaint: Dizziness Stated complaint: Light headed, vision blurred Time Seen by Provider: 06/26/25 08:42 Source: patient Mode of arrival: wheelchair Limitations: no limitations History of Present Illness ED Provider: DR. Horta HPI narrative: 34-year-old male otherwise healthy was brought in from laboratory department after had a near syncopal episode while had his blood drawn this morning at the labs. No complete syncopal episode or loss of consciousness, no CP, no SOB, no abdominal pain, no fever, no chills. Patient otherwise feels back to his baseline normal now. Related Data Home Medications ?Medication ?Instructions ?Recorded ?Confirmed trazodone 50 mg tablet mg PO BEDTIME PRN 05/17/20 1 07/17/24 clonazepam 1 mg tablet 1 mg PO DAILY PRN 12/28/20 1 07/17/24 fluticasone propionate 110 inhalation 01/09/24 5 mcg/actuation HFA aerosol inhaler prazosin 2 mg capsule 2 mg PO BID 01/09/24 5 aripiprazole 2 mg tablet 2 mg PO BEDTIME 01/12/2510/06 dextroamphetamine-amphetamine ER 1 cap PO BID 01/12/25 05/17/25 15 mg 24hr capsule,extend release escitalopram oxalate 5 mg tablet 5 mg PO DAILY 5 05/17/25 (Lexapro) Previous Rx's ?Medication ?Instructions ?Recorded cholecalciferol (vitamin D3) 50 50 mcg PO DAILY 90 day s #90 caps 06/26/21 mcg (2,000 unit) capsule albuterol sulfate 90 mcg/actuation 1 inh inhalation QI D PRN shortness 11/20/24 aerosol inhaler of breath or wheezing 30 day s #8.5 grams baclofen 10 mg tablet 10 mg PO DAILY PRN muscle sp asm 30 03/23/25 days #30 tabs lisinopril 5 mg tablet 5 mg PO DAILY 30 days #30 ta bs 05/17/25 Allergies Allergy/AdvReac Type Severity Reaction Status Date / Time hazelnut Allergy Unknown throat Verified 06/26/25 08:11 itchy Review of Systems Review of Systems: All other systems are reviewed and are negative Constitutional: Reports as per HPI and Reports no additional constitutional complaints Eyes: Reports as per HPI and Reports no additional eye complaints Reports system reviewed and no additional complaints, except as documented Cardiovascular: Reports as per HPI and Reports no additional cardiovascular complaints Respiratory: Reports as per HPI and Reports no additional respiratory complaints Gastrointestinal: Reports as per HPI and Reports no additional gastrointestinal complaints Genitourinary: Reports no additional female genitourinary complaints Musculoskeletal: Reports no additional musculoskeletal complaints Skin/Breast: Reports system reviewed and no additional complaints, except as docu Psychiatric: Reports no additional psychiatric complaints Endocrine: Reports no additional endocrine complaints Hematologic/Lymphatic: Reports no additional hematologic/lymphatic complaints Allergic/Immunologic: Reports no additional allergic/immunologic complaints Reports system reviewed and no additional complaints, except as documented and Reports Abnormal speech present [facility] Past Medical History Medical History Asthma MDD (major depressive disorder) JAN (generalized anxiety disorder) ADD (attention deficit disorder) Surgical History No pertinent past surgical history Family History Family History Father Medical history unknown Mother Depression with anxiety Chronic mental illness Mental health disorder Family/Other Diabetes Social History Social History Housing: House Alcohol intake: current Alcohol intake frequency: 3 or more drinks per day Alcohol type: beer Patient Tobacco Use Status: Never used Tobacco Tobacco use type: Cigarette e-Cigarette/Vaping Use: Never Used Second Hand Smoke Exposure: No Advance Directives: No Advance Directives Information Provided: No service: No Current occupational status: employed Current occupation: [employer] - [employer] Current occupational exposures/hazards: No Cognitive needs: No Hearing needs: No Vision needs: Yes (glasses) Physical Exam ED Vital Signs: Vital Signs - 24 hr 06/26/25 08:09 Temperature 97.7 F Pulse Rate 79 Respiratory Rate 16 Blood Pressure 123/91 H Pulse Oximetry 98 Oxygen Delivery Method Room Air BMI result Body Mass Index 32.5 Vital signs have been reviewed and appear to be correct. Blood pressure elevated. Heart rate normal. Respiratory rate normal. Temperature normal. Oxygen saturation normal. Appearance: Alert. Oriented X3. No acute distress. Head: Normal external exam. Normocephalic. Atraumatic. No Torres signs noted. No raccoon eyes noted Eyes: PERRLA. EOMI. Conjunctiva and sclera normal. Eyelids normal. ENT: TM's Normal. Pharynx normal. Uvula midline. Moist mucous membranes. No trismus noted. No drooling noted. No muffled voice noted. Neck: Normal inspection. Neck supple. FROM. No adenopathy. Thyroid Normal. No meningeal signs. No neck mass noted. CVS: Normal heart rate and rhythm. Heart sound normal. No murmurs noted. Pulses normal throughout. Respiratory: No respiratory distress. Painless inspiration. Breath sounds normal. No wheezes/rales/rhonchi noted. Chest nontender. No accessory muscle usage noted or decreased air movement noted. Abdomen: Soft and nontender. Bowel sounds normal in all 4 quadrants. No distention noted. No organomegaly noted. No visible injury noted. Back: No CVA tenderness. Full range of motion noted. Skin: Skin warm and dry. Normal skin color. Normal skin turgor. No rashes/lesions/lacerations noted. Extremities: No lower extremity edema. Extremities exhibit normal range of motion. Extremities nontender. Neuro: Oriented X 3. Cranial nerve exam: II-XII are grossly intact No motor deficit. No sensory deficit. Reflexes normal. Course Reevaluation(s) Reevaluation #1: Vasovagal reflex after a blood withdrawal this morning, patient otherwise feels back to his baseline, no CP, no SOB, no abdominal pain. DC to follow-up with PCP. Time: 09:55 Medical Decision Making Differential Diagnosis Differential Diagnoses: The differential diagnosis associated with the presentation includes (Vasovagal reflex, dehydration, electrolyte derangement, severe anemia, ACS.) Lab Data MDM Lab Attestation statement: I reviewed the patient's lab results. Labs: Lab Results 06/26/25 Range/Units 08:18 POC Glucose 143 H (60-115) mg/dL Independent Interpretation I performed an independent interpretation of an: EKG (Normal sinus rhythm at 80 beats per minutes, normal intervals, no ST-T changes, no change from prior EKG.) Radiology Impression Discussion of test interpretation with radiology: I have reviewed the radiologist's reading. Discharge Plan Discharge Clinical Impression: Vasovagal response Patient Disposition: Home, Self-Care Instructions: Near Syncope (ED) Prescriptions: No Action cholecalciferol (vitamin D3) 50 mcg (2,000 unit) capsule 50 mcg PO DAILY 90 Days Qty: 90 2RF albuterol sulfate 90 mcg/actuation HFA aerosol inhaler 1 inh inhalation QID PRN (Reason: shortness of breath or wheezing) 30 Days Qty: 8.5 3RF baclofen 10 mg tablet 10 mg PO DAILY PRN (Reason: muscle spasm) 30 Days Qty: 30 2RF trazodone 50 mg tablet PO BEDTIME PRN clonazepam 1 mg tablet 1 mg PO DAILY PRN prazosin 2 mg capsule 2 mg PO BID fluticasone propionate 110 mcg/actuation HFA aerosol inhaler inhalation escitalopram oxalate [Lexapro] 5 mg tablet 5 mg PO DAILY dextroamphetamine-amphetamine 15 mg capsule,extended release 24hr 1 cap PO BID aripiprazole 2 mg tablet 2 mg PO BEDTIME lisinopril 5 mg tablet 5 mg PO DAILY 30 Days Qty: 30 2RF Referrals: Rishi Galan PA-C [Primary Care Provider, Internal Medicine] Print Language: Armenian
[2025-06-26 10:11] VITALS: BP 123/91; PULSE 79; RESP 16; TEMP 36.5; O2SAT 98
== END 2025-06-26 10:12 | disposition home or self-care (01) ==
PROVIDERS: Emergency Provider Emergency Medicine; PCP Physician Assistant
DX: R55 Syncope and collapse (principal); R42 Dizziness and giddiness; H53.8 Other visual disturbances
CPT/HCPCS: 82947; 93005; 99283

== ENCOUNTER → 2025-06-26 08:11 | Outpatient (BNV) | payer BC, SELFPAY | PROVIDERS: Emergency Provider Emergency Medicine; PCP Physician Assistant; Visit Provider Internal Medicine Cardiovascular Disease | DX: I45.10 Unspecified right bundle-branch block (principal) | CPT/HCPCS: 93010 ==

== ENCOUNTER 2025-07-05 10:24 | Outpatient (AMB) | payer BC, SELFPAY ==
--- NOTE | 2025-07-05 10:33 | A.OFFVIS_ITS ---
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 Allergies hazelnut Allergy (Unknown, Verified 07/05/25 10:35) throat itchy Medication List - Last Reconciled 07/05/25 by Geovanna Brown LPN albuterol sulfate 90 mcg/actuation 1 inh inhalation QID PRN 30 days aripiprazole 2 mg PO BEDTIME baclofen 10 mg PO DAILY PRN 30 days cholecalciferol (vitamin D3) 50 mcg PO DAILY 90 days clonazepam 1 mg PO DAILY PRN dextroamphetamine-amphetamine 15 mg ER 1 cap PO BID escitalopram oxalate (Lexapro) 5 mg PO DAILY fluticasone propionate 110 mcg/actuation inhalation lisinopril 5 mg PO DAILY 30 days prazosin 2 mg PO BID trazodone mg PO BEDTIME PRN HPI HPI S/P L5-S1 Parasagittal Interlaminar SUSAN: Details: History of Present Illness The patient is a 34 year old male presenting for a follow-up visit for management of chronic back pain two months after an epidural steroid injection. Reports >80% relief for >6 weeks. He reports that his pain has started to return to baseline, but he is not yet back to square one. Following the injection, for the first couple of weeks, the patient experienced a new, rare symptom described as a sensation of his skin being suddenly grabbed, which was triggered by certain movements. He has not had this symptom for the last few weeks. His care has involved epidural steroid injections for pain flares, and he expresses a desire to space out the injections as much as possible. Posture has been discussed as a contributing factor to his back pain. Pain Description - Location: The patient's pain is located in his back. - Quality: He describes a recent, transient symptom as a grabbing sensation on his skin. - Onset and Timing: He is at a two-month follow-up after an epidural steroid injection. - Exacerbating Factors: The grabbing sensation was triggered by certain movements. - Relieving Factors: The prior epidural steroid injection provided partial relief of his pain. Physical Exam - Musculoskeletal: On palpation of the back, the patient indicated a point of tenderness in the right midback. - Appears afebrile. - Alert and oriented. - Mood and affect appropriate. - Follows and participates in conversation appropriately. - Respiratory effort is unlabored. Pain Management: - Analgesia: The patient is two months status post-epidural steroid injection with partial relief, as pain is not back to baseline. - Activities of Daily Living: The patient has not reported significant fun ctional limitations but would ask for help if needed. - Adverse Effects: He reported a new, transient grabbing sensation on the skin for two weeks after the last injection, which has since resolved. - Aberrant Drug Related Behaviors: There are no aberrant behaviors noted; the patient wishes to extend the interval between injections. [facility] Medical History Asthma MDD (major depressive disorder) JAN (generalized anxiety disorder) ADD (attention deficit disorder) Surgical History No pertinent past surgical history Family History Father Medical history unknown Mother Depression with anxiety Chronic mental illness Mental health disorder Family/Other Diabetes Social History Housing: House Alcohol intake: current Alcohol intake frequency: 3 or more drinks per day Alcohol type: beer Patient Tobacco Use Status: Never used Tobacco Tobacco use type: Cigarette e-Cigarette/Vaping Use: Never Used Second Hand Smoke Exposure: No service: No Current occupational status: employed Current occupation: Title [employer] - [employer] Current occupational exposures/hazards: No Cognitive needs: No Hearing needs: No Vision needs: Yes (glasses) Physical Exam Vital Signs: Last Vital Signs Pulse 87 07/05/25 10:34 Resp 16 07/05/25 10:34 BP 136/84 07/05/25 10:34 Pulse Ox 97 07/05/25 10:34 Oxygen Delivery Method Room Air 07/05/25 10:34 BMI result Body Mass Index 32.3 Assessment & Plan Assessment & Plan (1) Spondylolisthesis, lumbar region: Code(s): M43.16 - Spondylolisthesis, lumbar region Category: Medical (2) Lumbago: Code(s): M54.50 - Low back pain, unspecified Category: Medical (3) Pars defect with spondylolisthesis: Code(s): M43.10 - Spondylolisthesis, site unspecified Category: Medical Plan Plan Patient was informed and verbally consented to the use of an ambient scribe for clinic note documentation during this visit. 1. Chronic Back Pain - The patient is 34 years old and two months post-epidural steroid injection with good pain relief. - The current plan is to wait and monitor symptoms to determine the maximum duration of benefit from the injection. - The patient agrees with this approach and desires to spread out interventions as much as possible. - Emphasis was placed on conservative management, including focusing on posture and core strengthening. - The rationale for judicious use of injections is due to the patient's young age, to preserve future treatment options. - The patient was instructed to call for an appointment if he experiences a pain flare that is persistent for one to two weeks and unmanageable. Discussion Notes I discussed with the patient that he is at the two-month makenzie since his last epidural steroid injection and noted his partial improvement. We reviewed his transient post-injection symptom of a skin-grabbing sensation, which has resolved. I presented the options of scheduling another injection or adopting a wait and watch strategy. The patient preferred to extend the interval between injections, with which I concurred. I reinforced the importance of conservative management, such as improving posture and core strength. I explained that due to his young age of 34, a judicious approach to interventions is warranted to preserve long-term treatment options. I instructed him to contact the office for a follow-up if a pain flare persists for one to two weeks. Patient Instructions - We will wait to schedule your next injection to see how long the pain relief from the last one lasts. - Continue to focus on your posture and exercises to strengthen your core muscles. - If your back pain flares up and does not get better after 1-2 weeks, please call our office to discuss another injection. - Keep an eye on any new symptoms, like the grabbing pain you felt, and let us know if they return. Coding Level of Care Code Est Pt Level 3 (67334) Diagnoses Spondylolisthesis, lumbar region M43.16 Lumbago M54.50 Pars defect with spondylolisthesis M43.10
[2025-07-05 10:34] VITALS: BP 136/84; PULSE 87; RESP 16; O2SAT 97; BMI 32.3
--- OUTSIDE RECORDS SUMMARY | 2025-07-05 12:44 | XMS_ITS | Clinical Summary ---
Author Organization [facility] Address [address] [place] [address] Care Team Providers Care Transmission Builder Name Role Phone Unknown Primary Care Provider [phone] Allergies No known active allergies Medications lisdexamfetamine [...] patient's age to complete this topic Insurance [facility] - PPO Care Teams Transmission Builder Relationship Specialty Start Date End Date Unknown Unknow Provider Address PCP - General 06/30/22
--- OUTSIDE RECORDS SUMMARY | 2025-07-05 12:44 | XMS_ITS | Clinical Summary ---
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
== END 2025-07-05 10:51 | disposition home or self-care (01) ==
LOC: HO.PMC 10:25
PROVIDERS: PCP Physician Assistant; Visit Provider Internal Medicine
DX: M43.16 Spondylolisthesis, lumbar region (principal); M54.50 Low back pain, unspecified; M43.10 Spondylolisthesis, site unspecified
CPT/HCPCS: 99213